=== PATIENT | female | born 1945 | race Caucasian/White ===

== ENCOUNTER 2021-07-04 04:24 | Emergency (ER) | payer OTHER ==
--- OUTSIDE RECORDS SUMMARY | 2021-07-04 04:28 | XMS REPORT | Continuity of Care Document ---
:1945 Author Organization [facility] t Address [address] [place] [address] Care Team Providers Name Role Phone Farutn Sosa MD Primary Care Physician Barry Baldwin MD Attending Clinician Mitzy Chilel MD Attending Clinician [phone] MD DENNY Attending Clinician Unavailable Carmelo Prather RN Attending Clinician Unavailable DENNY Admitting Clinician Unavailable MD DENNY Admitting Clinician Unavailable Payers Payer Name Policy Type Policy Effective Date Expiration Date Sour ce Number HUMANA [id number] 2020 [facility] MEDICAREHUMANA 00:00:00 Hospital MEDICARE PPO/PFFS/ERS [id number] 2020 -PresentPPO Problems Condition Condition Condition Status Onset Resolution Last Treating Co mments Source Name Details Category Date Date Treatment Clinician Date Atrial Atrial Disease Active Methodi flutter flutter 04-11 st 00:00: Hospita 00 l Allergies, Adverse Reactions, Alerts Allergy Allergy Status Severity Reaction(s) Onset Inactive Treating Comm ents Source Name Type Date Date Clinician No Known DA Active U [facility] Drug 05-16 Clear Allergie 00:00: Burk s 00 [facility] adhesive DA Active AL [facility] tape 05-16 Clear 00:00: Burk 00 [facility] No Known DA Active U [facility] Allergie 05-15 [place] 00[place] [facility] l Family History Family Member Diagnosis Comments Start Date Stop Date Source Natural brother Heart disease Method [facility] Natural father [facility] Natural mother COPD [facility] Natural sister Anemia [facility] Social History Social Habit Start Date Stop Date Quantity Comments Source Tobacco use and 2021-04-19 2021-04-19 Never used [facility] 00:00:00 00:00:00 Hospital Alcohol intake 2021-04-19 2021-04-19 Current [facility] 00:00:00 00:00:00 non-drinker of Hospital alcohol (finding) Sex Ass[birth year] [facility] 00:[facility] 00:[facility]:00 Hospital Smoking Status Start Date Stop Date Source Never smoker [facility] Medications Ordered Filled Start Stop Current Ordering Indication Dosage Frequency Signature Comments Components Source Medication Medication Date Date Medication? Clinician (SIG) Name Name enoxaparin 2020- No Q.5D Inject Meth juan sodium -11 04-[address] (LOVENOX 19:47: 00:00 skin 2 Hospit a SUBQ) 16 :00 (two) l times a day. Pt is not sure about dosage metoprolol Yes 50mg Q.5D Take 50 mg M ethodi tartrate 5-[address] (LOPRESSOR) 19:47: (two) Hospi ta 50 mg 14 times a l tablet day. losartan-hy Yes 1{tbl} QD Take 1 Me thodi drochloroth 5-[address] iazide 19:47: mouth Hospita (HYZAAR) 14 daily. l 50-12.5 mg per tablet apixaban Yes 5mg Q.5D Take 5 mg Meth juan (ELIQUIS) 5-[address] 2.5 mg 19:47: (two) Hospita tablet 14 times a l day. aspirin 81mg QD Take 81 mg Met hodi (ECOTRIN) 04-[address] 81 MG 12:16: 00:00 daily. Hospita enteric 49 :00 l coated tablet Vital Signs Vital Name Observation Time Observation Value Comments Source Systolic blood 2021-04-11 18:45:00 134 mm[Hg] [facility] pressure Diastolic blood 2021-04-11 18:45:00 71 mm[Hg] [facility] pressure Heart rate 2021-04-11 18:45:00 75 /min [facility] Respiratory rate 2021-04-11 18:45:00 14 /min [facility] [place] [place] Oxygen saturation in 2021-04-11 18:45:00 98 /min [facility] Arterial blood by Pulse oximetry Body temperature 2021-04-11 16:00:[address] [facility] [place] [place] Body height 2021-04-11 12:07:00 172.7 cm [facility] Body weight 2021-04-11 12:07:00 91.853 kg [facility] BMI 2021-04-11 12:07:00 30.79 kg/m2 [facility] Procedures Procedure Date / Time Performing Clinician Source Performed ECG 12-LEAD 2021-04-11 15:12:47 Barry Baldwin EP ABLATION FLUTTER 2021-04-11 14:34:18 [facility] AND SCREEN 2021-04-11 12:42:00 Barry Baldwin spital ECG PRE/POST OP 2021-04-11 11:18:34 Barry Baldwin spital COVID-19 QUALITATIVE 2021-04-09 17:35:00 [facility] PROTHROMBIN TIME WITH INR 2021-04-09 17:31:00 Barry Baldwin [facility] MAGNESIUM LEVEL 2021-04-09 17:31:00 Barry Baldwin spital HC COMPLETE BLD COUNT 2021-04-09 17:31:00 Barry Baldwin [facility] W/AUTO DIFF COMPREHENSIVE METABOLIC 2021-04-09 17:31:[address] [facility] [place] [place] PANEL ESTIMATED GFR 2021-04-09 17:31:00 DennyGypsyeulalia [facility] spital Plan of Care Planned Activity Planned Date Details Comments Source Future Scheduled Test COVID-19 VACCINE (1) [facility] [code = COVID-19 VACCINE (1)] Future Scheduled Test Hepatitis C screening [facility] (procedure) [code = 127325152] Future Scheduled Test BREAST CANCER SCREENING [facility] [code = BREAST CANCER SCREENING] Future Scheduled Test COLONOSCOPY SCREENING [facility] [code = COLONOSCOPY SCREENING] Future Scheduled Test SHINGLES VACCINES (#1) [facility] [code = SHINGLES VACCINES (#1)] Future Scheduled Test 65+ PNEUMOCOCCAL Me [facility] VACCINE (1 of 1 - PPSV23) [code = 65+ PNEUMOCOCCAL VACCINE (1 of 1 - PPSV23)] Future Scheduled Test INFLUENZA VACCINE [code [facility] = INFLUENZA VACCINE] Encounters Start End Encounter Admission Attending Care Care Encounter Source Date/Time Date/Time Type Type Clinicians Facility Department ID 2021-04-11 2021-04-11 Hospital Denny, 1.2.840.1 [id number] Methodi 05:38:00 14:46:00 Encounter Nadeulalia [address]13.1.[address] 3.430.2.7 Hospit a .3.689578 l .8 2021-04-11 2021-04-11 Surgery Denny, 1.2.840.1 [id number] Methodi 08:00:00 10:00:[address] 3.430.2.7 Hospit a .3.588823 l .8 2021-04-11 2021-04-11 Anesthesia Chilel, 1.2.840.1 [id number] Methodi 08:00:00 09:55:00 Event Mitzy 05894.1.[address] [place] 3.430.2.7 Hospi ta .3.671695 l .8 2021-04-11 2021-04-11 [facility] [id number] [place] 00:00:00 00:00:00 NADIM [address] 2021-04-11 2021-04-11 Travel 1.2.840.1 1.2.003.916 [id number] Methodi 00:00:00 00:00:[address] 3.430.2.7 0.2.7.3.698 Ho spita .3.740344 084.8 l .8 2021-04-09 2021-04-09 Lab Denny, 1.2.840.1 [id number] Methodi 11:49:08 12:04:[address] 3.430.2.7 Hospit a .3.051152 l .8 2021-04-09 2021-04-09 Travel 1.2.840.1 1.2.002.116 [id number] Methodi 00:00:00 00:00:[address] 3.430.2.7 0.2.7.3.698 Ho spita .3.758313 084.8 l .8 2021-04-09 2021-04-09 [facility] Denny, 1.2.840.1 [id number] Methodi 00:00:00 00:00:00 Orders Nadim [address]73.1.[address] 3.430.2.7 Hospit a .3.406122 l .8 2021-04-09 2021-04-09 Outpatient DENNY, [facility] [id number] [place] 00:00:00 00:00:00 NADIM [address] 2021-03-05 2021-03-05 Telephone Crescencio, 1.2.840.1 [id number] Methodi 00:00:00 00:00:[address] [place] 3.430.2.7 Hospit a .3.087041 l .8 2021-03-05 2021-03-05 Travel 1.2.840.1 1.2.212.819 [id number] Methodi 00:00:00 00:00:[address] 3.430.2.7 0.2.7.3.698 enriqueta .3.084345 084.8 l .8 Results Test Description Test Test Results Result Source Time Comments Comments Electrophysiology 2021-04- TITLE OF [facility] st procedure 01 PROCEDURE:[facility] 16:47:05 flutter ablation.PREOPERATIVE DIAGNOSIS:Atrial flutter.POSTOPERATIVE DIAGNOSIS:CTI-dependen t atrial flutter.PROCEDURES PERFORMED:1. Monitored anesthesia care.2. Intracardiac 3-dimensional mapping.3. Coronary sinus catheter placement.4. Right radiofrequency ablation.5. Post-ablation EP study.BRIEF HISTORY AND CLINICAL BACKGROUND:This is a 75-year-old woman who was found to have atrial flutter by herinternist. He started her on oral anticoagulation. She was referred to Minerva, client relations associate in [facility] but Mrs. Prasad declinied to go thereand instead was referred to me for consideration of treatment options for atrialflutter.We discussed the various options including cardioversion and observation,cardiovers ion and medical management or ablation and she elected to proceed forradiofrequency ablation. Today, she comes for that procedure.DESCRIPTION OF PROCEDURE:The patient was taken to the EP lab in the fasting nonsedated drug free state. Informed consent had been previously obtained and reconfirmed. She was preppedand draped in the usual fashion. Utilizing ultrasound guidance, access to theright femoral vein was achieved x2. A 7-Liberian and 8-Liberian short sheaths wereplaced through the 7-Liberian sheath, a Decapolar pacing and recording catheterwas advanced into the coronary sinus for measurement of left atrial electrogramsand pacing from the os of the coronary sinus. Utilizing this catheter,entrainment mapping from the os of the coronary sinus was performed and thepost-pacing interval minus tachycardia cycle length was measured. The 8-Liberian sheath was upgraded to a medium curve Agilis sheath through which aSt. César Medical flexibility irrigated tip ablation catheter was advanced. Thiswas then used to three dimensionally map the ventricular to the caval aspect ofthe CTI. Subsequently, radiofrequency ablation drag lesions across the CTIguided by diminishment of electrogram size to less than 0.3 millivolts wasperformed. Utilizing this technique, radiofrequency ablation drag lesionsdiminished electrogram size to less than 0.1 millivolt across the CTIterminating the atrial flutter. There was a thick ridge of tissue on the cavalaspect of the CTI, which required additional lesion sets to decrease theelectrogram size to less than 0.1 millivolts. Having done so and testing forconduction block, we eventually achieved transannular conduction time that wassubstantially increased compared to preablation TACT. At this point, thepost-ablation EP study was completed and the Agilis sheath was upsized to ashort 9-Liberian sheath and the patient was taken to recovery for removal of thevenous sheaths and further recovery from monitored anesthesia care.COMPLICATIONS:Non e.FINDINGS:1. Estimated blood loss 4 mL.2. The baseline rhythm was atrial flutter with an atrial flutter cycle lengthof 258 milliseconds.3. Entrainment from the [employer] MANAGER showed a post-pacing interval minus tachycardiacycle length of 0 msec.4. Radiofrequency ablation drag lesions across the CTI terminated atrialflutter.5. Preablation transannular conduction time was 60 milliseconds andpost-ablation was 160 milliseconds.6. AV node block cycle length 400 milliseconds.7. AV node ERP drive cycle of 500 milliseconds was 250 milliseconds.CONCLUSIO N:1. Successful acute ablation of atrial flutter.2. Normal AV node function.RECOMMENDATIO NS:Resume oral anticoagulation later today and discharge home in 4 hours. ECG 12 lead 2021-04-11 23:33:39 Test Item Value Reference Range Interpretation Comme nts Ventricular rate (test code = 253) Atrial rate (test code = 255) KS interval (test code = 266) QRSD interval (test code = 260) QT interval (test code = 264) QTC interval (test code = 265) P axis 1 (test code = 267) QRS axis 1 (test code = 268) T wave axis (test code = 270) EKG impression (test code = 273) [facility] [id number] 23:27:17 Test Item Value Reference Range Interpretation Comments Ventricular rate (test code = 253) Atrial rate (test code = 255) QRSD interval (test code = 260) QT interval (test code = 264) QTC interval (test code = 265) QRS axis 1 (test code = 268) T wave axis (test code = 270) EKG impression (test code = 273) [facility] and [id number] 14:00:00 Test Item Value Reference Range Interpretation Comments ABO grouping (test code = 883-9) O Rh type (test code = 94052-1) POS Antibody screen (gel) (test code = NEG 890-4) [facility] qualitative [id number] 01:21:49 Test Item Value Reference Range Interpretation Comments Interpretation (test code = 7976814) COVID-19 qualitative RT-PCR Not-Detected Not-Detected result (test code = 48560-8) COVID-19 qualitative RT-PCR See link below for (test code = 7070) PDF Lab Report [facility] [id number]-GvU-3 (COVID-19) RNA [Presence] in Respiratory specimen by LU with probe [id number] 20:21:39 Test Item Value Reference Range Interpretation Comments SARS-CoV-2 (COVID-19) RNA Not detected Not-Detected [Presence] in Respiratory specimen by LU with probe detection (test code = 83475-7) Whether patient is employed in a healthcare setting (test code = 34783-2) Whether the patient has symptoms related to condition of interest (test code = 83644-9) Patient was hospitalized because of this condition (test code = 82397-8) Whether the patient was admitted to intensive care unit (ICU) for condition of interest (test code = 97099-2) Whether patient resides in a congregate care setting (test code = 39601-8) BASIC METABOLIC [id number] 06:28:00 Test Item Value Reference Range Interpretation Comments SODIUM (test code = 142 mmol/L 136-145 N NA) POTASSIUM (test code = 4.8 mmol/L 3.5-5.1 N K) CHLORIDE (test code = 105.0 mmol/L 98-107 N CL) CARBON DIOXIDE (test 26.4 mmol/L 21-32 N code = CO2) GLUCOSE (test code = 135 mg/dL 70-110 H GLU) BLOOD UREA NITROGEN 22 mg/dL 7-18 H (test code = BUN) GLOMERULAR FILTRATION 50.8 >60 Unit o f measure: RATE (test code = GFR) mL/mi n/1.73 [id number] Range:Healthy Adults >90 mL/min/1.73 m2 For Chronic Kidney Disease: St age II Mild Decrease in GFR 60-90 St age III Moderate Decrease in GFR 30-59 Stage IV Severe Decre ase in GFR 15- 29 Stage V Kidney Failure <15 CREATININE (test code 1.06 mg/dL 0.55-1.30 N = CREAT) CALCIUM (test code = 8.1 mg/dL 8.2-10.1 L CA) HGB [id number] 05:55:00 Test Item Value Reference Range Interpretation Comments HEMOGLOBIN (test code = HGB) 10.7 g/dL 12-16 L HEMATOCRIT (test code = HCT) 33.2 % 37-47 L Novel Coronavirus 2019 [id number] 14:35:00 Test Item Value Reference Range Interpretation Comments Novel Coronavirus 2018 Inhouse (test Negative Negative code = COVNONPUI) Novel Coronavirus 2019 [id number] 14:35:00 Test Item Value Reference Range Interpretation Comments Novel Coronavirus 2018 Inhouse (test Negative Negative code = COVNONPUI) - USG NDL PLACEMENT (Bxg/Asp)2020-06-07 09:49:00 Patient Name: RAMIREZ PRASAD Unit No: [id number] EXAMS: CPT CODE: [id number] USG NDL PLACEMENT (Bxg/Asp) 83893 INDICATION: Left knee pain. PROCEDURE: Ultrasound guided cryoneurolysis of the anterior femoral cutaneous nerve superior and inferior branches of the infrapatellar nerve. MANAGER BOOKS: Dr. Luo. MEDICATIONS: 1 % Lidocaine localanesthesia CONTRAST: None. COMPLICATION: None immediately evident. DESCRIPTION: After the procedure, including indication and potential complications had been discussed with the patient and questions answered, written informed consent was obtained. The patient was then taken to the ultrasound suite and placed on the table in supine position where skin of the left knee was evaluated sonographically. The skin was marked using ultrasound guidance. The skin was then prepped and draped sterilely. A time out was performed. After achieving 1% Lidocaine local anesthesia, the Iovera device, composed ofthree hollow closed-tip 27 gauge 6 mm needles, was introduced percutaneously at the target site as marked sonographically. At each target site, the Iovera device was activated over a 60 second cycle, creating a cold zone at the target site. Following each cycle, the probe was removed and advanced to the next target site. No immediate complication were observed. The patient tolerated the procedure well and was subsequently discharged in stable condition. Preprocedural pain level: 3/ 10 Postprocedural pain level: / 10 IMPRESSION: Cryoneurolysis of the anterior femoral cutaneous nerve superior and inferior branches of the infrapatellar nerve as above. at 0949 Reported and signed by: Gigi Luo MD CC: Anjel Spence MD Technologist: JOVON HAYS RDMS, RVT Transcribed D/ (0901) Lav[facility]G [facility] NAME: RAMIREZ PRASAD [address] [facility] PHYS: Anjel Self MD : 1945 AGE: 74 SEX: F [place] [address] LOC: Y.RAD PHONE #: [phone] EXAM DATE: 06/07/2020 STATUS: REG CLI FAX #: [phone] RAD #: D/C DT PAGE 1 Signed Report Patient Name: RAMIREZ PRASAD Unit No: [id number] EXAMS: CPT CODE: [id number] USG NDL PLACEMENT (Bxg/Asp) 40456 <Continued> Orig Print D/T: S: 06/07/2020 (0952) [facility] NAME: RAMIREZ PRASAD [address] [facility] PHYS: Anjel Self MD : 1945 AGE: 74 SEX: F [place] [address] LOC: Y.RAD PHONE #: [phone] EXAM DATE: 06/07/2020 STATUS: REG CLI FAX #: [phone] RAD #: D/C DT PAGE 2 Signed ReportCBC W/AUTO DIFF 2020-05-16 12:07:00 Test Item Value Reference Range Interpretation Comments WHITE BLOOD CELL (test code = WBC) 5.5 K/mm3 5.8-11.0 L RED BLOOD CELL (test code = RBC) 4.21 M/mm3 4.2-5.4 N HEMOGLOBIN (test code = HGB) 12.6 g/dL 12-16 N HEMATOCRIT (test code = HCT) 38.0 % 37-47 N MEAN CELL VOLUME (test code = MCV) 90 fL 80-98 N MEAN CELL HGB (test code = MCH) 29.9 pg 27-34 N MEAN CELL HGB CONCENTRATION (test 33.2 g/dL 30.8-34.1 N code = MCHC) RED CELL DISTRIBUTION WIDTH (test 12.6 % 11-16 N code = RDW) PLT (test code = PLT) 285 K/mm3 130-400 N MEAN PLATELET VOLUME (test code = 10.9 fL 8.9-12.1 N MPV) NEUTROPHIL % (test code = NT%) 61.4 % 45-70 N LYMPHOCYTE % (test code = LY%) 25.7 % 20-40 N MONOCYTE % (test code = MO%) 9.4 % 3-10 N EOSINOPHIL % (test code = EO%) 2.6 % 1-5 N BASOPHIL % (test code = BA%) 0.7 % 0.0-1.1 N NEUTROPHIL # (test code = NT#) 3.35 K/mm3 2.00-7.50 N LYMPHOCYTE # (test code = LY#) 1.40 K/mm3 1.50-4.00 L MONOCYTE # (test code = MO#) 0.51 K/mm3 0.2-0.8 N EOSINOPHIL # (test code = EO#) 0.14 K/mm3 0.04-0.4 N BASOPHIL # (test code = BA#) 0.04 K/mm3 0.02-0.10 N MANUAL DIFF REQUIRED (test code = NO MANUAL DIFF MDIFF) NUCLEATED RED BLOOD CELL (test 0 % 0-0 N code = NRBC) COMPREHENSIVE METABOLIC [id number] 11:59:00 Test Item Value Reference Range Interpretation Comments SODIUM (test code = 141 mmol/L 136-145 N NA) POTASSIUM (test code = 4.5 mmol/L 3.5-5.1 N K) CHLORIDE (test code = 103.0 mmol/L 98-107 N CL) CARBON DIOXIDE (test 27.5 mmol/L 21-32 N code = CO2) GLUCOSE (test code = 82 mg/dL 70-110 N GLU) BLOOD UREA NITROGEN 25 mg/dL 7-18 H (test code = BUN) GLOMERULAR FILTRATION 55.6 >60 Unit o f measure: RATE (test code = GFR) mL/mi n/1.73 [id number] Range:Healthy Adults >90 mL/min/1.73 m2 For Chronic Kidney Disease: St age II Mild Decrease in GFR 60-90 St age III Moderate Decrease in GFR 30-59 Stage IV Severe Decre ase in GFR 15- 29 Stage V Kidney Failure <15 CREATININE (test code 0.98 mg/dL 0.55-1.30 N = CREAT) TOTAL PROTEIN (test 7.1 g/dL 6.4-8.2 N code = PROT) ALBUMIN (test code = 3.6 g/dL 3.4-5.0 N ALB) GLOBULIN (test code = 3.5 g/dL 2.2-4.2 N GLOB) ALBUMIN/GLOBULIN RATIO 1.0 0.7-2.0 N (test code = A/G) CALCIUM (test code = 9.0 mg/dL 8.2-10.1 N CA) BILIRUBIN TOTAL (test 0.50 mg/dL 0.2-1.00 N code = BILT) SGOT/AST (test code = 20.0 U/L 15-37 N AST) SGPT/ALT (test code = 20.0 U/L 12-78 N Please note new ALT) normal range. ALKALINE PHOSPHATASE 65 U/L 46-116 N TOTAL (test code = ALKP) PROTHROMBIN [id number] 11:59:00 Test Item Value Reference Range Interpretation Comments PROTHROMBIN TIME 15.2 secs 10.1-12.5 H PATIENT (test code = PTP) INTERNATIONAL NORMAL 1.36 <2.0 RECOMME NDED THERAPEUTIC RATIO (test code = RANGE FOR ORAL INR) ANTICOAGULANTTR EATMENT: CONDI TION INRProphylaxis of venous thrombos is in 2.0 - 3.0 high-risk medic al or surgical patientsTreatme nt of venous thrombos is 2.0 - 3.0Prevention o f embolism 2.0 - 3.0Prevention o f recurrent embol ism, or 3.0 - 4. 5 patients with mechanical pros thetic intravascular v chamorro IS PATIENT ON ANTICOAGULANTS ? YLIST ANTICOAGULANT/ANTI PLT MEDICATION : OtherHas Lab been notified if Patient is on Heparin Drip? NOIf Yes, order CBC, OCCULT BLOOD, PT every other day NTHROMBOPLASTIN TIME [id number] 11:59:00 Test Item Value Reference Range Interpretation Comments PTT ACTIVATED (test code = APTT) 35.5 secs 24.9-37.0 N IS PATIENT ON ANTICOAGULANTS ? YLIST ANTICOAGULANT/ANTI PLT MEDICATION : OtherHas Lab been notified if Patient is on Heparin Drip? NOIf Yes, order CBC, OCCULT BLOOD, PT every other day NBASIC METABOLIC [id number] 11:46:00 Test Item Value Reference Range Interpretation Comments SODIUM (test code = NA) 139 mmol/L 134-147 N POTASSIUM (test code = K) 4.4 mmol/L 3.4-5.0 N CHLORIDE (test code = CL) 108 mmol/L 100-108 N CARBON DIOXIDE (test code = CO2) 24 mmol/L 21-32 N ANION GAP (test code = GAP) 7.0 GAP calc 4.0-15.0 N GLUCOSE (test code = GLU) 98 MG/DL 70-110 N BLOOD UREA NITROGEN (test code = 17 MG/DL 7-18 N BUN) GLOMERULAR FILTRATION RATE (test 58 estGFR >60 L code = GFR) CREATININE (test code = CREAT) 1.0 MG/DL 0.6-1.0 N CALCIUM (test code = CA) 8.8 MG/DL 8.5-10.1 N PROTHROMBIN [id number] 11:37:00 Test Item Value Reference Range Interpretation Comments PT PATIENT (test code = PTP) 16.8 SECONDS 9.3-12.9 H INTERNATIONAL NORMAL RATIO 1.45 INR Unit 0.8-1.2 H (test code = INR) CBC W/AUTO [id number] 11:33:00 Test Item Value Reference Range Interpretation Comments WHITE BLOOD CELL (test code = 4.8 K/mm3 3.5-11.0 N WBC) RED BLOOD CELL (test code = RBC) 4.20 M/mm3 4.70-6.10 L HEMOGLOBIN (test code = HGB) 12.8 G/DL 10.4-14.9 N HEMATOCRIT (test code = HCT) 39.1 % 31.5-44.1 N MEAN CELL VOLUME (test code = 93.1 Fl 84.5-98.6 N MCV) MEAN CELL HGB (test code = MCH) 30.5 pg 27.0-34.2 N MEAN CELL HGB CONCETRATION (test 32.7 G/DL 31.5-34.0 N code = MCHC) RED CELL DISTRIBUTION WIDTH (test 13.6 SD 11.5-14.5 N code = RDW) PLATELET COUNT (test code = PLT) 283.0 K/mm3 150-450 N MEAN PLATELET VOLUME (test code = 10.50 fL 7.0-10.5 N MPV) NEUTROPHIL % (test code = NT%) 61.2 % 40-76 N LYMPHOCYTE % (test code = LY%) 26.7 % 20.5-51.1 N MONOCYTE % (test code = MO%) 8.6 % 1.7-9.3 N EOSINOPHIL % (test code = EO%) 2.9 % 0.0-6.0 N BASOPHIL % (test code = BA%) 0.6 % 0.0-2.0 N NEUTROPHIL # (test code = NT#) 2.90 K/mm3 1.8-7.6 N LYMPHOCYTE # (test code = LY#) 1.3 K/mm3 0.6-3.2 N MONOCYTE # (test code = MO#) 0.4 K/mm3 0.3-1.1 N EOSINOPHIL # (test code = EO#) 0.1 K/mm3 0.0-0.4 N BASOPHIL # (test code = BA#) 0.0 K/mm3 0.0-0.1 N MANUAL DIFF REQUIRED (test code = NO DIFF/SCN CRITERIA MDIFF) BASIC METABOLIC [id number] 04:25:00 Test Item Value Reference Range Interpretation Comments SODIUM (test code = NA) 142 mmol/L 134-147 N POTASSIUM (test code = 3.9 mmol/L 3.4-5.0 N K) CHLORIDE (test code = 109 mmol/L 100-108 H CL) CARBON DIOXIDE (test 26 mmol/L 21-32 N code = CO2) ANION GAP (test code = 7.0 GAP calc 4.0-15.0 N GAP) GLUCOSE (test code = 90 MG/DL 70-110 N GLU) BLOOD UREA NITROGEN 14 MG/DL 7-18 N (test code = BUN) GLOMERULAR FILTRATION >=60 max estimate >60 RATE (test code = GFR) estGFR CREATININE (test code = 0.9 MG/DL 0.6-1.0 N CREAT) CALCIUM (test code = CA) 8.3 MG/DL 8.5-10.1 L [id number] 04:25:00 Test Item Value Reference Range Interpretation Comments MAGNESIUM (test code = MAG) 2.1 MG/DL 1.8-2.4 N BASIC METABOLIC [id number] 06:53:00 Test Item Value Reference Range Interpretation Comments SODIUM (test code = NA) 139 mmol/L 134-147 N POTASSIUM (test code = K) 3.7 mmol/L 3.4-5.0 N CHLORIDE (test code = CL) 108 mmol/L 100-108 N CARBON DIOXIDE (test code = CO2) 25 mmol/L 21-32 N ANION GAP (test code = GAP) 6.0 GAP calc 4.0-15.0 N GLUCOSE (test code = GLU) 81 MG/DL 70-110 N BLOOD UREA NITROGEN (test code = 15 MG/DL 7-18 N BUN) GLOMERULAR FILTRATION RATE (test 58 estGFR >60 L code = GFR) CREATININE (test code = CREAT) 1.0 MG/DL 0.6-1.0 N CALCIUM (test code = CA) 8.5 MG/DL 8.5-10.1 N LIPID PROFILE (CORONARY RISK)2019-05-16 06:53:00 Test Item Value Reference Range Interpretation Comments TRIGLYCERIDES (test code = TRIG) 161 MG/DL 0-150 H CHOLESTEROL (test code = CHOL) 232 MG/DL 133-200 H CHOLESTEROL/HDL RATIO (test code = 4.22 RATIO >0 CHOLHDL) HDL CHOLESTEROL (test code = HDL) 55 MG/DL 40-59 N NON-HDL CHOLESTEROL (test code = 177 mg/dL <130 H NHDL) LIPOPROTEIN LDL (test code = LDL) 153 MG/DL 0-129 H LDL/HDL (test code = LDL/HDL) 2.78 Ratio 1.48-3.22 Avg N [id number] 06:53:00 Test Item Value Reference Range Interpretation Comments MAGNESIUM (test code = MAG) 2.2 MG/DL 1.8-2.4 N GLYCOSYLATED HEMOGLOBIN [id number] 06:53:00 Test Item Value Reference Range Interpretation Comments GLYCOSYLATED HEMOGLOBIN (HA1C) 5.6 % A1C 4.2-6.3 N (test code = GLYHGB) ESTIMATED AVERAGE GLUCOSE (test 114 MG/DLest code = EAG) PROTHROMBIN [id number] 06:53:00 Test Item Value Reference Range Interpretation Comments PT PATIENT (test code = PTP) 12.0 SECONDS 9.3-12.9 N INTERNATIONAL NORMAL RATIO 1.04 INR Unit 0.8-1.2 N (test code = INR) CBC W/AUTO [id number] 06:43:00 Test Item Value Reference Range Interpretation Comments WHITE BLOOD CELL (test code = 4.9 K/mm3 3.5-11.0 N WBC) RED BLOOD CELL (test code = RBC) 3.93 M/mm3 4.70-6.10 L HEMOGLOBIN (test code = HGB) 11.6 G/DL 10.4-14.9 N HEMATOCRIT (test code = HCT) 36.4 % 31.5-44.1 N MEAN CELL VOLUME (test code = 92.6 Fl 84.5-98.6 N MCV) MEAN CELL HGB (test code = MCH) 29.5 pg 27.0-34.2 N MEAN CELL HGB CONCETRATION (test 31.9 G/DL 31.5-34.0 N code = MCHC) RED CELL DISTRIBUTION WIDTH (test 13.7 SD 11.5-14.5 N code = RDW) PLATELET COUNT (test code = PLT) 242.0 K/mm3 150-450 N MEAN PLATELET VOLUME (test code = 10.30 fL 7.0-10.5 N MPV) NEUTROPHIL % (test code = NT%) 47.8 % 40-76 LYMPHOCYTE % (test code = LY%) 42.1 % 20.5-51.1 N MONOCYTE % (test code = MO%) 7.8 % 1.7-9.3 N EOSINOPHIL % (test code = EO%) 1.9 % 0.0-6.0 N BASOPHIL % (test code = BA%) 0.4 % 0.0-2.0 N NEUTROPHIL # (test code = NT#) 2.32 K/mm3 1.8-7.6 N LYMPHOCYTE # (test code = LY#) 2.0 K/mm3 0.6-3.2 N MONOCYTE # (test code = MO#) 0.4 K/mm3 0.3-1.1 N EOSINOPHIL # (test code = EO#) 0.1 K/mm3 0.0-0.4 N BASOPHIL # (test code = BA#) 0.0 K/mm3 0.0-0.1 N MANUAL DIFF REQUIRED (test code = NO DIFF/SCN CRITERIA MDIFF) PROCALCITONIN (PCT)2019-05-16 03:10:00 Test Item Value Reference Range Interpretation Comments PROCALCITONIN (PCT) < 0.05 ng/mL 0.00-0.05 N PROCALCI TONIN (PCT) (test code = PROCAL) NORMAL RANGE (ADULT): <0.05 NG/ML. * a concentration < 0.5 ng/mL represent s a low risk of severe sepsis and/or septic s hock.* a concentration >2 ng/mL represent s a high risk of se amanda sepsis and/or s eptic shock.Neverthel ess, concentrations <0.5 ng/mL do not ex clude aninfection, on account of loca lized infections (withoutsystemi c signs) which ca n be associated with such lowconcentratio ns, or a systemic infe ction in its initials tages (< 6 hours). Furthermore, in creased procalcitoninca n occur without infecti on. PCT concentrations between 0.5and 2.0 ng/m L should be inter preted taking into acc ount thepatient's hi story. It is recommend ed to retest PCT with in6-24 hours if any concentrations <2 ng/mL are obtai carlos. PROCALCITONIN (PCT)2019-05-16 03:10:00 Test Item Value Reference Range Interpretation Comments PROCALCITONIN (PCT) < 0.05 ng/mL 0.00-0.05 PROCALCI TONIN (PCT) (test code = PROCAL) NORMAL RANGE (ADULT): <0.05 NG/ML. * a concentration < 0.5 ng/mL represent s a low risk of severe sepsis and/or septic s hock.* a concentration >2 ng/mL represent s a high risk of se amanda sepsis and/or s eptic shock.Neverthel ess, concentrations <0.5 ng/mL do not ex clude aninfection, on account of loca lized infections (withoutsystemi c signs) which ca n be associated with such lowconcentratio ns, or a systemic infe ction in its initials tages (< 6 hours). Furthermore, in creased procalcitoninca n occur without infecti on. PCT concentrations between 0.5and 2.0 ng/m L should be inter preted taking into acc ount thepatient's hi story. It is recommend ed to retest PCT with in6-24 hours if any concentrations <2 ng/mL are obtai carlos. [id number] 20:54:00 Test Item Value Reference Range Interpretation Comments TROPONIN-I (test 0.017 NG/ML 0.000-0.045 N Negative: < /= 0.045 code = TROPI) Positive: >/= 0.046 Correlation wit h serial results, other cardiac markers, and cl inical findings is nec essary to determine the c linical significance of this result. Quantit ative results using d ifferent methodologies s hould not be compared to one another as nume rical results may diego yby method. Completed by Nursing: NOT4 [id number] 16:58:00 Test Item Value Reference Range Interpretation Comments T4 FREE (test code = T4F) 1.01 NG/DL 0.89-1.76 N THYROID STIMULATING [id number] 16:58:00 Test Item Value Reference Range Interpretation Comments THYROID STIMULATING HORMONE 1.880 mcIU/ML 0.340-4.820 N (test code = TSH) [id number] 16:50:00 Test Item Value Reference Range Interpretation Comments TROPONIN-I (test < 0.015 NG/ML 0.000-0.045 N Negative: </= 0.045 code = TROPI) Positive: >/= 0.046 Correlation wit h serial results, other cardiac markers, and cl inical findings is nec essary to determine the c linical significance of this result. Quantit ative results using d ifferent methodologies s hould not be compared to one another as nume rical results may diego yby method. Completed by Nursing: NOLACTIC ACID [id number] 14:35:00 Test Item Value Reference Range Interpretation Comments LACTIC ACID POC (test code = 1.24 MMOL/L 0.90-1.70 N LACTP) COMPREHENSIVE METABOLIC [id number] 13:10:00 Test Item Value Reference Range Interpretation Comments SODIUM (test code = NA) 139 mmol/L 134-147 N POTASSIUM (test code = 3.7 mmol/L 3.4-5.0 N K) CHLORIDE (test code = 105 mmol/L 100-108 N CL) CARBON DIOXIDE (test 27 mmol/L 21-32 N code = CO2) ANION GAP (test code = 7.0 GAP calc 4.0-15.0 N GAP) GLUCOSE (test code = 104 MG/DL 70-110 N GLU) BLOOD UREA NITROGEN 15 MG/DL 7-18 N (test code = BUN) GLOMERULAR FILTRATION >=60 max estimate >60 RATE (test code = GFR) estGFR CREATININE (test code = 0.9 MG/DL 0.6-1.0 N CREAT) TOTAL PROTEIN (test code 7.0 G/DL 6.4-8.2 N = PROT) ALBUMIN (test code = 3.4 G/DL 3.4-5.0 N ALB) GLOBULIN (test code = 3.6 GM/dL GLOB) ALBUMIN/GLOBULIN RATIO 0.9 RATIO 1.2-2.2 L (test code = A/G) CALCIUM (test code = CA) 8.6 MG/DL 8.5-10.1 N BILIRUBIN TOTAL (test 0.40 MG/DL 0.2-1.2 N code = BILT) SGOT/AST (test code = 17 Unit/L 15-37 N AST) SGPT/ALT (test code = 20 Unit/L 12-78 N ALT) ALKALINE PHOSPHATASE 59 Unit/L 45-117 N TOTAL (test code = ALKP) Completed by Nursing: [id number] 13:10:00 Test Item Value Reference Range Interpretation Comments MAGNESIUM (test code = MAG) 2.1 MG/DL 1.8-2.4 N Completed by Nursing: NONT PRO-BRAIN NATRIURETIC [id number] 13:10:00 Test Item Value Reference Range Interpretation Comments NT PRO-BRAIN NATRIURETIC PEPTI 2041 PG/ML 0-100 H (test code = PROBNP) Completed by Nursing: [id number] 13:10:00 Test Item Value Reference Range Interpretation Comments TROPONIN-I (test < 0.015 NG/ML 0.000-0.045 N Negative: </= 0.045 code = TROPI) Positive: >/= 0.046 Correlation wit h serial results, other cardiac markers, and cl inical findings is nec essary to determine the c linical significance of this result. Quantit ative results using d ifferent methodologies s hould not be compared to one another as nume rical results may diego yby method. Completed by Nursing: NOCOMPREHENSIVE METABOLIC [id number] 13:03:00 Test Item Value Reference Range Interpretation Comments SODIUM (test code = NA) 139 mmol/L 134-147 N POTASSIUM (test code = K) 3.7 mmol/L 3.4-5.0 N CHLORIDE (test code = CL) 105 mmol/L 100-108 N CARBON DIOXIDE (test code = CO2) 27 mmol/L 21-32 N ANION GAP (test code = GAP) 7.0 GAP calc 4.0-15.0 N GLUCOSE (test code = GLU) 104 MG/DL 70-110 N BLOOD UREA NITROGEN (test code = 15 MG/DL 7-18 N BUN) GLOMERULAR FILTRATION RATE (test estGFR >60 code = GFR) CREATININE (test code = CREAT) MG/DL 0.6-1.0 TOTAL PROTEIN (test code = PROT) G/DL 6.4-8.2 ALBUMIN (test code = ALB) G/DL 3.4-5.0 GLOBULIN (test code = GLOB) GM/dL ALBUMIN/GLOBULIN RATIO (test RATIO 1.2-2.2 code = A/G) CALCIUM (test code = CA) 8.6 MG/DL 8.5-10.1 N BILIRUBIN TOTAL (test code = MG/DL 0.2-1.2 BILT) SGOT/AST (test code = AST) Unit/L 15-37 SGPT/ALT (test code = ALT) Unit/L 12-78 ALKALINE PHOSPHATASE TOTAL (test Unit/L 45-117 code = ALKP) Completed by Nursing: [id number] 13:03:00 Test Item Value Reference Range Interpretation Comments MAGNESIUM (test code = MAG) 2.1 MG/DL 1.8-2.4 N Completed by Nursing: NONT PRO-BRAIN NATRIURETIC [id number] 13:03:00 Test Item Value Reference Range Interpretation Comments NT PRO-BRAIN NATRIURETIC PEPTI (test PG/ML 0-100 code = PROBNP) Completed by Nursing: [id number] 13:03:00 Test Item Value Reference Range Interpretation Comments TROPONIN-I (test code = TROPI) NG/ML 0.000-0.045 Completed by Nursing: NOCBC W/AUTO [id number] 12:53:00 Test Item Value Reference Range Interpretation Comments WHITE BLOOD CELL (test code = 6.8 K/mm3 3.5-11.0 N WBC) RED BLOOD CELL (test code = RBC) 4.20 M/mm3 4.70-6.10 L HEMOGLOBIN (test code = HGB) 12.9 G/DL 10.4-14.9 N HEMATOCRIT (test code = HCT) 37.6 % 31.5-44.1 N MEAN CELL VOLUME (test code = 89.5 Fl 84.5-98.6 N MCV) MEAN CELL HGB (test code = MCH) 30.7 pg 27.0-34.2 N MEAN CELL HGB CONCETRATION (test 34.3 G/DL 31.5-34.0 H code = MCHC) RED CELL DISTRIBUTION WIDTH (test 13.3 SD 11.5-14.5 N code = RDW) PLATELET COUNT (test code = PLT) 271.0 K/mm3 150-450 N MEAN PLATELET VOLUME (test code = 10.30 fL 7.0-10.5 N MPV) NEUTROPHIL % (test code = NT%) 78.4 % 40-76 H LYMPHOCYTE % (test code = LY%) 13.2 % 20.5-51.1 L MONOCYTE % (test code = MO%) 7.6 % 1.7-9.3 N EOSINOPHIL % (test code = EO%) 0.4 % 0.0-6.0 N BASOPHIL % (test code = BA%) 0.4 % 0.0-2.0 N NEUTROPHIL # (test code = NT#) 5.32 K/mm3 1.8-7.6 N LYMPHOCYTE # (test code = LY#) 0.9 K/mm3 0.6-3.2 N MONOCYTE # (test code = MO#) 0.5 K/mm3 0.3-1.1 N EOSINOPHIL # (test code = EO#) 0.0 K/mm3 0.0-0.4 N BASOPHIL # (test code = BA#) 0.0 K/mm3 0.0-0.1 N MANUAL DIFF REQUIRED (test code = NO DIFF/SCN CRITERIA MDIFF) LACTIC ACID [id number] 12:52:00 Test Item Value Reference Range Interpretation Comments LACTIC ACID POC (test code = 2.62 MMOL/L 0.90-1.70 H LACTP) - XR CHEST 1 [id number] 12:41:00 Name: RAMIREZ PRASAD Bartow : 1945 Age/S: 73 / F [address] [address] Unit #: [id number] Loc: [place] [address] Phys: Tsering Javier MD Acct: [id number] Dis Date: Status: PRE ER PHONE #: [phone] Exam Date: 05/15/2019 1227 FAX #: Reason: AFlutterwith RVR EXAMS: CPT: [id number] XR CHEST 1 V [id number] Fluoro Time: DAP (Gy m2): Air Kerma (mGy): Chest Radiograph History: AFlutter with RVR Comparison: None at this time Location: R16 A single frontal view of the chest is submitted. The exam is limited due to a large amount of overlying soft tissue. The heart is within normal limits in size. Pulmonary vasculature isunremarkable. The visualized lung lorenzo appear to be free of disease. The bones appear unremarkable. IMPRESSION: There is no radiographic evidence of acute cardiopulmonary disease. at 1241 Reported and signed by: Jama Garibay M.D. CC: Tsering Javier MD PAGE 1 Signed Report Name: RAMIREZ PRASAD Bartow : 1945 Age/S: 73 / F [address] [address] Unit #: [id number] Loc: [place] [address] Phys: Tsering Javier MD Acct: [id number] Dis Date: Status: PRE ER PHONE #: [phone] Exam Date: 05/15/2019 1225 FAX #: Reason: AFlutter with RVR EXAMS: CPT: [id number] XR CHEST 1 V [id number] Fluoro Time: DAP (Gy m2): Air Kerma (mGy):<Continued> Technologist: Cynthia Meraz, RT(R)(MR) Trnscb Date/Time: 05/15/2019 (4069) LavonnePMT Orig Print D/T: S: 05/15/2019 (2790) PAGE 2 Signed Report TROPONIN I [id number] 12:26:00 Test Item Value Reference Range Interpretation Comments TROPONIN I RAPID 0.01 ng/mL 0.00-0.08 N - The use o f serial (test code = sampling and te sting TROPIRAP) protocol is a recommended pra ctice- An elevated tro ponin level alone is often not sufficient for diagnosis of my ocardial infarction. CHEMISTRY 8 [id number] 12:19:00 Test Item Value Reference Range Interpretation Comments ISTAT-SODIUM (test code = NAP) mmol/L 135-146 ISTAT-POTASSIUM (test code = KP) mmol/L 3.5-4.9 ISTAT-CHLORIDE (test code = CLP) mmol/L 98-109 ISTAT-CARBON DIOXIDE (test code = mmol/L 24-29 N ISTAT-CO2) ISTAT CALCIUM IONIZED (test code = mmol/L 1.12-1.32 ISTAT-HENOK) ISTAT-GLUCOSE (test code = GLUP) mg/dL 70-105 H ISTAT-BUN (test code = BUNP) mg/dL 8-26 N BEDSIDE CREATININE (test code = mg/dL 0.6-1.3 N CREATBED) GLOMERULAR FILTRATION RATE POC (test 65 39-90 N code = GFRBED) CHEMISTRY 8 [id number] 12:19:00 Test Item Value Reference Range Interpretation Comments ISTAT-SODIUM (test code = NAP) 139 mmol/L 135-146 N ISTAT-POTASSIUM (test code = KP) 4.0 mmol/L 3.5-4.9 N ISTAT-CHLORIDE (test code = CLP) 100 mmol/L 98-109 N ISTAT-CARBON DIOXIDE (test code = 26 mmol/L 24-29 N ISTAT-CO2) ISTAT CALCIUM IONIZED (test code 1.26 mmol/L 1.12-1.32 N = ISTAT-HENOK) ISTAT-GLUCOSE (test code = GLUP) 119 mg/dL 70-105 H ISTAT-BUN (test code = BUNP) 17 mg/dL 8-26 N BEDSIDE CREATININE (test code = 0.9 mg/dL 0.6-1.3 N CREATBED) GLOMERULAR FILTRATION RATE POC 65 39-90 N (test code = GFRBED)
[2021-07-04 05:16] LABS: Absolute Lymphocytes (CBC) 0.5 K/uL (0.7-4.9); Basophils % 0.1 % (0-1.3); Hematocrit 35.7 % (36.0-45.0); Lymphocytes % 10.6 % (15.3-44.8); MPV 8.8 fL (7.6-11.3); RBC Red Blood Cell Count 4.01 M/uL (3.86-4.86)
[2021-07-04 05:19] LABS: Protime INR 1.25
[2021-07-04] MEDS ORDERED: METOPROLOL TAR 25 MG TAB ONE (05:26)
[2021-07-04] MEDS ORDERED: ASPIRIN 81 MG CHEWABLE TABLET ONE (05:26)
[2021-07-04] MEDS ORDERED: METOPROLOL TARTRATE 5 MG/5 ML INJ IV ONE (05:26)
[2021-07-04 05:46] LABS: Albumin 2.3 g/dL (3.4-5.0); Bilirubin Direct 0.3 mg/dL (0-0.2); Bilirubin Total 0.7 mg/dL (0.2-1.0); Ferritin 766.3 ng/mL (8-388); Protein, Total 6.3 g/dL (6.4-8.2); Thyroid Stimulating Hormone 0.847 uIU/mL (0.360-3.740); Troponin (Emerg Dept Use Only) 0.03 ng/mL (0.0-0.045)
[2021-07-04] MEDS ORDERED: ENOXAPARIN 80 MG/0.8 ML SQ ONE (06:29)
[2021-07-04] MEDS ORDERED: DIGOXIN 0.25 MG/ML AMP ONE (06:29)
[2021-07-04] MEDS ORDERED: dexAMETHasone 10 MG/ML VIAL ONE (06:29)
[2021-07-04] MEDS ORDERED: FAMOTIDINE 20 MG/2 ML VIAL IV ONE (06:29)
--- NOTE | 2021-07-04 06:48 | EDPHYS ---
Physician Documentation [facility] Name: Christine Parson Age: 75 yrs Sex: Female : 1945 Arrival Date: 07/04/2021 Time: 04:27 Bed 2 Private MD: ED Physician Fady Leigh HPI: 07/04 05:45 This 75 yrs old Female presents to ER via EMS with complaints of sob, amauri diarrhea, palpitations and near syncope. 05:45 The patient has shortness of breath at rest, with light activity. Onset: The amauri symptoms/episode began/occurred 3 day(s) ago. Duration: The symptoms are continuous, and are steadily getting worse. The patient's shortness of breath has no apparent modifying factors. The patient or guardian reports chest pain that is located primarily in the substernal area. Onset: 3 day(s) ago. The patient presents with a history of irregular heart beat, heart racing. Context: The symptoms occur with light activity. Historical: - Allergies: 04:27 No Known Allergies; jb4 - Home Meds: 04:27 losartan oral [Active]; Metoprolol Tartrate Oral [Active]; aspirin 81 mg Oral tab jb4 [Active]; - PMHx: 04:27 A-Flutter; jb4 - PSHx: 04:27 Cardiac oblasion; jb4 - Immunization history:: Adult Immunizations up to date. - Social history:: Smoking status: Patient denies any tobacco usage or history of. Patient/guardian denies using alcohol, street drugs. - Family history:: not pertinent. ROS: 05:45 Constitutional: Negative for fever, chills, and weight loss, Eyes: Negative for injury, amauri pain, redness, and discharge, ENT: Negative for injury, pain, and discharge, Neck: Negative for injury, pain, and swelling, Respiratory: Negative for shortness of breath, cough, wheezing, and pleuritic chest pain, Abdomen/GI: Negative for abdominal pain, nausea, vomiting, diarrhea, and constipation, Back: Negative for injury and pain, : Negative for injury, bleeding, discharge, and swelling, Skin: Negative for injury, rash, and discoloration, Neuro: Negative for headache, weakness, numbness, tingling, and seizure, Psych: Negative for depression, anxiety, suicide ideation, homicidal ideation, and hallucinations, Allergy/Immunology: Negative for hives, rash, and allergies, Endocrine: Negative for neck swelling, polydipsia, polyuria, polyphagia, and marked weight changes. 05:45 Cardiovascular: Positive for chest pain, palpitations. Exam: 05:45 Constitutional: This is a well developed, well nourished patient who is awake, alert, amauri and in no acute distress. Head/Face: Normocephalic, atraumatic. Eyes: Pupils equal round and reactive to light, extra-ocular motions intact. Lids and lashes normal. Conjunctiva and sclera are non-icteric and not injected. Cornea within normal limits. Periorbital areas with no swelling, redness, or edema. ENT: Nares patent. No nasal discharge, no septal abnormalities noted. Tympanic membranes are normal and external auditory canals are clear. Oropharynx with no redness, swelling, or masses, exudates, or evidence of obstruction, uvula midline. Mucous membranes moist. Neck: Trachea midline, no thyromegaly or masses palpated, and no cervical lymphadenopathy. Supple, full range of motion without nuchal rigidity, or vertebral point tenderness. No Meningismus. Chest/axilla: Normal chest wall appearance and motion. Nontender with no deformity. No lesions are appreciated. Respiratory: Lungs have equal breath sounds bilaterally, clear to auscultation and percussion. No rales, rhonchi or wheezes noted. No increased work of breathing, no retractions or nasal flaring. Abdomen/GI: Soft, non-tender, with normal bowel sounds. No distension or tympany. No guarding or rebound. No evidence of tenderness throughout. Back: No spinal tenderness. No costovertebral tenderness. Full range of motion. Female : Normal external genitalia. Skin: Warm, dry with normal turgor. Normal color with no rashes, no lesions, and no evidence of cellulitis. MS/ Extremity: Pulses equal, no cyanosis. Neurovascular intact. Full, normal range of motion. Neuro: Awake and alert, GCS 15, oriented to person, place, time, and situation. Cranial nerves II-XII grossly intact. Motor strength 5/5 in all extremities. Sensory grossly intact. Cerebellar exam normal. Normal gait. Psych: Awake, alert, with orientation to person, place and time. Behavior, mood, and affect are within normal limits. 05:45 Cardiovascular: Rate: tachycardic, Rhythm: irregularly irregular, Pulses: Pulses are 4+ in bilateral radial, brachial, femoral, popliteal, posterior tibial and and dorsalis pedis arteries.. Heart sounds: normal, Edema: is not appreciated, JVD: is not appreciated. Vital Signs: 04:20 BP 160 / 64; Pulse 148; Resp 20; Temp 99.2(TE); Pulse Ox 91% on R/A; Weight 83.91 kg jb4 (R); Height 5 ft. 8 in. (172.72 cm) (R); Pain 0/10; 05:25 BP 111 / 68; Pulse 122; Resp 23; Pulse Ox 93% ; ds4 06:15 BP 126 / 73; Pulse 74; Resp 22; Pulse Ox 93% on R/A; jb4 07:00 BP 136 / 87; Pulse 90; Resp 21; Pulse Ox 93% on 2 lpm NC; sv 08:00 BP 154 / 91; Pulse 93; Resp 23; Temp 97.9(TE); Pulse Ox 93% on 2 lpm NC; sv 09:00 BP 150 / 92; Pulse 89; Resp 24; Pulse Ox 93% on 2 lpm NC; sv 10:00 BP 148 / 89; Pulse 99; Resp 20; Pulse Ox 94% on 2 lpm NC; sv 11:00 BP 134 / 89; Pulse 95; Resp 25; Pulse Ox 95% on 2 lpm NC; sv 04:20 Body Mass Index 28.13 (83.91 kg, 172.72 cm) jb4 MDM: 04:52 Patient medically screened. amauri 05:47 Differential diagnosis: Anemia Anxiety Reaction asthma, Bronchitis anxiety, chest wall amauri pain, gastritis, pneumonia, Pulmonary Embolism Unstable Angina. Antibiotic administration: Rocephin and Zithromax given. Differential Diagnosis flu. HEART Score: History: Slightly Suspicious (0), ECG: Non specific repolarization disturbance / LBTB / PM (1), Age: > or = 65 years (2), Risk Factors: > or = 3 Risk factors for atherosclerotic disease (2), [Hypercholesterolemia] [Hypertension] [+ Family HX] [Obesity] Troponin: < or = 1 x Normal Limit (0). The patient was given aspirin in the Emergency Department. The patient's Wells Deep Vein Thrombosis Score was calculated as follows: Total Score: 0. This patient was found to be at low risk for a deep vein thrombosis by using the Well's assessment criteria Heart Rate >100 BPM (1.5 Pts) Total Score: 0-2 Pts- Low Risk. The patient's pulmonary embolism risk score was calculated as follows: the patients heart rate is greater than 100 beats per minute (1.5 Pts) Total Score:. REANNA Risk Score: 1 - patient's age is greater or equal to 65 years, 1 - Three or more CAD risk factors, 1- Known CAD, TOTAL SCORE = 3. Immunization status: Pneumococcal vaccine: Influenza vaccine: Data reviewed: vital signs, nurses notes, lab test result(s), EKG, radiologic studies, doppler, plain films. 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 Interpretation: borderline. 08:52 Counseling: I had a detailed discussion with the patient and/or guardian regarding: the jr8 historical points, exam findings, and any diagnostic results supporting the discharge/admit diagnosis, lab results, radiology results. ED course: Patient has done markedly better on oxygen at 2 to 3 L/min via nasal cannula. Sitting between 93 to 94% on oxygen at this time. Rate controlled at this time as well with her atrial fibrillation that came back. I have discussed this case with Dr. Martinez and he is okay with her going home as long as we anticoagulate her which patient is receptive to. Patient will be on Eliquis 5 mg p.o. twice daily. We will continue her metoprolol [address] Martinez will also call her today and set up appointment for the next 24 to 48 hours. Patient still has moderate bilateral opacities consistent with Covid pneumonia and is requiring oxygen via nasal cannula. I would like to establish home oxygen therapy at this time so we can try to get patient home. Social work has been notified.. 07/04 04:51 Order name: Basic Metabolic Panel; Complete Time: 06:38 amauri 07/04 04:51 Order name: CBC with Diff; Complete Time: 06:38 amauri 07/04 04:51 Order name: LFT's; Complete Time: 06:38 amauri 07/04 04:51 Order name: Magnesium; Complete Time: 06:38 07/04 04:51 Order name: NT PRO-BNP; Complete Time: 06:38 07/04 04:51 Order name: PT-INR; Complete Time: 06:38 07/04 04:51 Order name: Troponin (emerg Dept Use Only); Complete Time: 06:38 07/04 04:51 Order name: XRAY Chest (1 view); Complete Time: 08:40 07/04 04:51 Order name: D-Dimer; Complete Time: 06:38 07/04 04:51 Order name: TSH; Complete Time: 06:38 07/04 04:51 Order name: Ferritin; Complete Time: 06:38 [facility] 07/04 04:51 Order name: CRP; Complete Time: 06:38 [facility] 07/04 05:44 Order name: CT Chest For PE Angio 07/04 04:50 Order name: EKG; Complete Time: 04:51 [facility] 07/04 04:50 Order name: Cardiac monitoring; Complete Time: 04:58 [facility] 07/04 04:50 Order name: EKG - Nurse/Tech; Complete Time: 04:58 07/04 04:50 Order name: IV Saline Lock; Complete Time: 04:58 07/04 04:50 Order name: Labs collected and sent; Complete Time: 04:58 07/04 04:50 Order name: O2 Per Protocol; Complete Time: 04:58 07/04 04:50 Order name: O2 Sat Monitoring; Complete Time: 04:58 07/04 10:50 Order name: Diet Regular; Complete Time: 10:50 sv Administered Medications: 05:15 Drug: Aspirin Chewable Tablet 162 mg Route: PO; jb4 06:38 Follow up: Response: No adverse reaction jb4 05:15 Drug: Lopressor (metoprolol TARTRATE)) 25 mg Route: PO; jb4 06:38 Follow up: Response: No adverse reaction jb4 05:15 Drug: Lopressor (metoprolol) 2.5 mg Route: IVP; Site: right antecubital; jb4 06:37 Follow up: Response: No adverse reaction jb4 05:20 Not Given (given by EMS): Tylenol 650 mg PO once jb4 05:29 Drug: Lopressor (metoprolol) 2.5 mg Route: IVP; Site: right antecubital; jb4 06:38 Follow up: Response: No adverse reaction jb4 06:34 Drug: Decadron - Dexamethasone 10 mg Route: IVP; Site: right antecubital; jb4 07:00 Follow up: Response: No adverse reaction sv 06:35 Drug: Pepcid (famotidine) 20 mg Route: IVP; Site: right antecubital; jb4 07:00 Follow up: Response: No adverse reaction sv 06:37 Drug: Lovenox (enoxaparin) 1 mg/kg Route: Sub-Q; Site: right lower abdomen; jb4 07:00 Follow up: Response: No adverse reaction sv 06:37 Drug: Digoxin 0.5 mg Route: IVP; Site: right antecubital; jb4 07:00 Follow up: Response: No adverse reaction sv 08:01 Drug: Rocephin (cefTRIAXone) 1 grams Route: IV; Rate: per protocol; Site: right sv antecubital; 08:02 Follow up: Response: No adverse reaction; IV Status: Completed infusion; IV Intake: 10mlsv 10:00 Drug: Zithromax (azithromycin) 500 mg Route: IVPB; Infused Over: 1 hrs; Site: right sv antecubital; 11:00 Follow up: Response: No adverse reaction; IV Status: Completed infusion; IV Intake: sv 250ml Disposition: 07/05 07:19 Co-signature as Attending Physician, Fady Leigh MD I agree with the assessment and amauri plan of care. Disposition Summary: 07/04/21 12:36 Discharge Ordered Location: Home jr Problem: new(07/04/21 12:36) jr8 Symptoms: have improved(07/04/21 12:36) jr8 Condition: Stable(07/04/21 12:36) jr8 Diagnosis - Pneumonia due to SARS-associated coronavirus jr8 - Persistent atrial fibrillation jr8 Followup: jr8 - With: Samir Martinez MD - When: 2 - 3 days - Reason: Recheck today's complaints, Continuance of care, Re-evaluation by your physician Followup: jr8 - With: Daniele Schulz MD - When: 2 - 3 days - Reason: Recheck today's complaints, Continuance of care, Re-evaluation by your physician Discharge Instructions: - Discharge Summary Sheet jr8 - Atrial Fibrillation jr8 - COVID-19 jr8 Forms: - Medication Reconciliation Form jr8 - Thank You Letter jr8 - Antibiotic Education jr8 - Prescription Opioid Use jr8 Prescriptions: - Prednisone 20 mg Oral Tablet - take 1 tablet by ORAL route once daily for 5 days; 5 tablet; Refills: 0, jr8 Product Selection Permitted - Eliquis 5 mg Oral tablet - take 1 tablet by ORAL route 2 times per day; 60 tablet; Refills: 0, Product jr8 Selection Permitted Signatures: Dispatcher [employer] EDMS Alessandra Chambers RN Fady Montalvo MD MD cha Roszak, Josh, PA PA jr8 Mj Louis RN RN jb4 Corrections: (The following items were deleted from the chart) 07/04 04:57 04:51 Cardiac monitoring [place]. [place] [id number] 04:57 04:51 EKG - Nurse/Tech ordered. [place] [id number] 04:57 04:51 IV Saline Lock ordered. [place] [id number] 04:57 04:51 Labs collected and sent ordered. [place] [id number] 04:57 04:51 Oxygen Per Protocol ordered. [place] [id number] 04:57 04:51 O2 Sat Monitoring ordered. [place] [id number] 05:10 04:51 Chest Single View+RAD.RAD.BRZ ordered. EDMI EDMS 06:49 06:[address] [facility] 08:51 04:51 BASIC METABOLIC PANEL+C.LAB.BRZ ordered. EDMI EDMS 08:51 04:51 CBC+H.LAB.BRZ ordered. EDMI EDMS 08:51 04:51 HEPATIC FUNCTION+C.LAB.BRZ ordered. EDMS EDMS 08:51 04:51 MAGNESIUM+C.LAB.BRZ ordered. EDMS EDMS 08:51 04:51 PROBNP+C.LAB.BRZ ordered. EDMS EDMS 08:51 04:51 PROTIME (+INR)+COAG.LAB.BRZ ordered. EDMS EDMS 08:51 04:51 TROPONIN (EMERG DEPT USE ONLY)+C.LAB.BRZ ordered. 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 amauri 12:33 06:48 [facility] amauri jr8 12:33 06:48 Higher level of care amauri jr8 12:33 06:48 Fair amauri jr8 12:33 06:48 new amauri jr8 12:33 06:48 have improved amauri jr8 12:33 06:48 Coronavirus infection, unspecified amauri jr8 12:33 06:48 Unspecified atrial fibrillation amauri jr8 12:33 06:48 Weakness amauri jr8 12:33 06:48 Syncope Near amauri jr8 12:33 06:48 Hypoxemia amauri jr8 12:33 06:49 [address] [facility] amauri jr8 12:33 06:49 Diarrhea, unspecified amauri jr8
--- NOTE | 2021-07-04 06:48 | ER ---
Nurse's Notes [facility] Name: Christine Parson Age: 75 yrs Sex: Female : 1945 Arrival Date: 07/04/2021 Time: 04:27 Bed 2 Private MD: Diagnosis: Pneumonia due to SARS-associated coronavirus;Persistent atrial fibrillation Presentation: 07/04 04:20 Chief complaint: EMS states: Pt has a history of A-Flutter, is currently Covid-19 jb4 positive. Reports generalized weakness. Passed out multiple times. Heart rate ranges between 80's-140's. 04:20 Coronavirus screen: Client presents with at least one sign or symptom that may indicate jb4 coronavirus-19. Standard/surgical mask placed on the client. Provider contacted for isolation considerations. Client reports previous positive COVID test result. Ebola Screen: No symptoms or risks identified at this time. Initial Sepsis Screen: Does the patient meet any 2 criteria? HR > 90 bpm. Yes Does the patient have a suspected source of infection? No. Patient's initial sepsis screen is negative. Risk Assessment: Do you want to hurt yourself or someone else? Patient reports no desire to harm self or others. Onset of symptoms was July 04, 2021. Transition of care: patient was not received from another setting of care. 04:20 Method Of Arrival: EMS: [facility] jb4 04:20 Acuity: PRIYA 2 jb4 Historical: - Allergies: 04:27 No Known Allergies; jb4 - Home Meds: 04:27 losartan oral [Active]; Metoprolol Tartrate Oral [Active]; aspirin 81 mg Oral tab jb4 [Active]; - PMHx: 04:27 A-Flutter; jb4 - PSHx: 04:27 Cardiac oblasion; jb4 - Immunization history:: Adult Immunizations up to date. - Social history:: Smoking status: Patient denies any tobacco usage or history of. Patient/guardian denies using alcohol, street drugs. - Family history:: not pertinent. Screenin:27 Abuse screen: Denies threats or abuse. Nutritional screening: No deficits noted. jb4 Tuberculosis screening: No symptoms or risk factors identified. Fall Risk None identified. Assessment: 04:27 General: Appears in no apparent distress. uncomfortable, Behavior is calm, cooperative, jb4 appropriate for age. Pain: Denies pain. Neuro: Level of Consciousness is awake, alert, obeys commands, Oriented to person, place, time, situation. Cardiovascular: Patient's skin is warm and dry. Respiratory: Airway is patent Respiratory effort is even, unlabored, Respiratory pattern is regular, symmetrical. GI: No signs and/or symptoms were reported involving the gastrointestinal system. : No signs and/or symptoms were reported regarding the genitourinary system. EENT: No signs and/or symptoms were reported regarding the EENT system. Derm: Skin is intact, Skin is pink, warm \T\ dry. Musculoskeletal: Circulation, motion, and sensation intact. Range of motion: intact in all extremities. 05:30 Reassessment: Patient appears in no apparent distress at this time. Patient and/or jb4 family updated on plan of care and expected duration. Pain level reassessed. Patient is alert, oriented x 3, equal unlabored respirations, skin warm/dry/pink. 06:30 Reassessment: Patient appears in no apparent distress at this time. Patient and/or jb4 family updated on plan of care and expected duration. Pain level reassessed. Patient is alert, oriented x 3, equal unlabored respirations, skin warm/dry/pink. 07:30 General: Appears in no apparent distress. comfortable, well developed, Behavior is sv calm, cooperative, appropriate for age. Pain: Denies pain. Neuro: Level of Consciousness is awake, alert, obeys commands, Oriented to person, place, time, situation, Speech is normal. Cardiovascular: Heart tones S1 S2 present Patient's skin is warm and dry. Pulses are palpable in right radial artery and left radial artery Rhythm is atrial fibrillation. Respiratory: Airway is patent Respiratory effort is even, unlabored, Respiratory pattern is regular, symmetrical, Breath sounds are clear bilaterally. GI: Bowel sounds present X 4 quads. Derm: Skin is intact, Skin is pink, warm \T\ dry. 08:00 Reassessment: Pt updated on POC and transfer. Pt stated that she does not want to be sv transferred, she would rather stay here if able to. Informed Hasmukh MARIE. 08:00 Reassessment: Patient appears in no apparent distress at this time. Patient and/or sv family updated on plan of care and expected duration. Pain level reassessed. Patient is alert, oriented x 3, equal unlabored respirations, skin warm/dry/pink. 10:00 Reassessment: Patient appears in no apparent distress at this time. Patient and/or sv family updated on plan of care and expected duration. Pain level reassessed. Patient is alert, oriented x 3, equal unlabored respirations, skin warm/dry/pink. 11:00 Reassessment: Patient appears in no apparent distress at this time. No changes from sv previously documented assessment. Patient and/or family updated on plan of care and expected duration. Pain level reassessed. Patient is alert, oriented x 3, equal unlabored respirations, skin warm/dry/pink. 12:30 Reassessment: Pt given lunch tray. sv 13:33 Reassessment: Patient appears in no apparent distress at this time. Patient and/or sv family updated on plan of care and expected duration. Pain level reassessed. Patient is alert, oriented x 3, equal unlabored respirations, skin warm/dry/pink. Vital Signs: 04:20 BP 160 / 64; Pulse 148; Resp 20; Temp 99.2(TE); Pulse Ox 91% on R/A; Weight 83.91 kg jb4 (R); Height 5 ft. 8 in. (172.72 cm) (R); Pain 0/10; 05:25 BP 111 / 68; Pulse 122; Resp 23; Pulse Ox 93% ; ds4 06:15 BP 126 / 73; Pulse 74; Resp 22; Pulse Ox 93% on R/A; jb4 07:00 BP 136 / 87; Pulse 90; Resp 21; Pulse Ox 93% on 2 lpm NC; sv 08:00 BP 154 / 91; Pulse 93; Resp 23; Temp 97.9(TE); Pulse Ox 93% on 2 lpm NC; sv 09:00 BP 150 / 92; Pulse 89; Resp 24; Pulse Ox 93% on 2 lpm NC; sv 10:00 BP 148 / 89; Pulse 99; Resp 20; Pulse Ox 94% on 2 lpm NC; sv 11:00 BP 134 / 89; Pulse 95; Resp 25; Pulse Ox 95% on 2 lpm NC; sv 04:20 Body Mass Index 28.13 (83.91 kg, 172.72 cm) jb4 ED Course: 04:27 Patient arrived in ED. jb4 04:27 Arm band placed on right wrist. jb4 04:27 Patient has correct armband on for positive identification. Bed in low position. Call jb4 light in reach. Side rails up X 1. 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 Pulse ox on. NIBP on. 04:27 Inserted saline lock: 18 gauge in right antecubital area, using aseptic technique. jb4 Blood collected. 04:48 Mj Louis, RN is Primary Nurse. jb4 04:48 Fady Leigh MD is Attending Physician. amauri 04:50 Triage completed. jb4 05:35 XRAY Chest (1 view) In Process Unspecified. EDMS 06:24 CT Chest For PE Angio In Process Unspecified. EDMS 06:45 No provider procedures requiring assistance completed. jb4 07:17 Primary Nurse role handed off by Mj Louis RN sv 07:17 Alessandra Chambers, KAYLAH is Primary Nurse. sv 08:39 Hasmukh Vo PA is PHCP. jr8 09:14 initiated transfer to [facility], no beds available in the [facility] system for bd a covid pt. [facility] is closed for covid pts, per [place]. 09:20 transfer cancelled, per hasmukh MARIE. bd 12:34 Samir Martinez MD is Referral Physician. jr8 12:34 Daniele Schulz MD is Referral Physician. jr8 13:33 IV discontinued, intact, bleeding controlled, No redness/swelling at site. Pressure sv dressing applied. Administered Medications: 05:15 Drug: Aspirin Chewable Tablet 162 mg Route: PO; jb4 06:38 Follow up: Response: No adverse reaction jb4 05:15 Drug: Lopressor (metoprolol TARTRATE)) 25 mg Route: PO; jb4 06:38 Follow up: Response: No adverse reaction jb4 05:15 Drug: Lopressor (metoprolol) 2.5 mg Route: IVP; Site: right antecubital; jb4 06:37 Follow up: Response: No adverse reaction jb4 05:20 Not Given (given by EMS): Tylenol 650 mg PO once jb4 05:29 Drug: Lopressor (metoprolol) 2.5 mg Route: IVP; Site: right antecubital; jb4 06:38 Follow up: Response: No adverse reaction jb4 06:34 Drug: Decadron - Dexamethasone 10 mg Route: IVP; Site: right antecubital; jb4 07:00 Follow up: Response: No adverse reaction sv 06:35 Drug: Pepcid (famotidine) 20 mg Route: IVP; Site: right antecubital; jb4 07:00 Follow up: Response: No adverse reaction sv 06:37 Drug: Lovenox (enoxaparin) 1 mg/kg Route: Sub-Q; Site: right lower abdomen; jb4 07:00 Follow up: Response: No adverse reaction sv 06:37 Drug: Digoxin 0.5 mg Route: IVP; Site: right antecubital; jb4 07:00 Follow up: Response: No adverse reaction sv 08:01 Drug: Rocephin (cefTRIAXone) 1 grams Route: IV; Rate: per protocol; Site: right sv antecubital; 08:02 Follow up: Response: No adverse reaction; IV Status: Completed infusion; IV Intake: 10mlsv 10:00 Drug: Zithromax (azithromycin) 500 mg Route: IVPB; Infused Over: 1 hrs; Site: right sv antecubital; 11:00 Follow up: Response: No adverse reaction; IV Status: Completed infusion; IV Intake: sv 250ml Intake: 08:02 IV: 10ml; Total: 10ml. sv 11:00 IV: 250ml; Total: 260ml. sv Outcome: 06:48 ER care complete, transfer ordered by . amauri 12:36 Discharge ordered by . xochitl 13:33 Discharged to home via wheelchair, with friend, with home O2. sv 13:33 Condition: stable 13:33 Discharge instructions given to patient, Instructed on discharge instructions, follow up and referral plans. medication usage, Demonstrated understanding of instructions, follow-up care, medications, Prescriptions given X 2. 13:34 Patient left the ED. sv Signatures: Dispatcher [employer] EDMS Aileen Antonio Stephanie, RN RN Fady Potts MD MD cha Roszak, Josh, PA PA jr8 Sacha Arenas4 Mj Louis, KAYLAH RN jb4 Corrections: (The following items were deleted from the chart) 05:59 04:20 BP 160 / 64; Pulse 148bpm; Resp 20bpm; Pulse Ox 91% RA; Temp 99.2F Temporal; Pain jb4 0/10; jb4
--- NOTE | 2021-07-04 07:36 | RAD REPORT ---
EXAM DESCRIPTION: RAD - Chest Single View - 07/04/2021 5:36 am CLINICAL HISTORY: Congestion;Cough;Chest pain COMPARISON: Chest For Pe Angio dated 07/04/2021 FINDINGS: Scattered pulmonary airspace opacities which are partially obscured by the calcified breas t prostheses per The heart size is within normal limits.No acute osseous abnormality. No significant pleural effusions or pneumothorax. Calcified bilateral breast prostheses per IMPRESSION: Multifocal pneumonia better demonstrated on the subsequent chest CT.
[2021-07-04] MEDS ORDERED: AZITHROMYCIN IV 500 MG in NA CHLORIDE 0.9% 250 ML IVPB ONE (08:00)
[2021-07-04] MEDS ORDERED: CEFTRIAXONE/SWI 1gm 1 GM/10 ML SYR ONE (08:10)
--- NOTE | 2021-07-04 10:26 | RAD REPORT ---
EXAM DESCRIPTION: CT - Chest For Pe Angio - 07/04/2021 7:33 am COMPARISON: None. CLINICAL HISTORY: Chest pain;Palpitations TECHNIQUE: CT images through the chest with IV contrast using the pulmonary embolus protocol. Multip lanar reformats. Automated exposure control was utilized on this examination as a dose lowering techn ique. FINDINGS: Pulmonary arteries and vascular: Diagnostic quality bolus. No filling defects. Moderate at herosclerosis. Heart and mediastinum: Heart size is mildly enlarged. Mediastinal lymph nodes are increased in number but not in size and are likely reactive. Thyroid gland: Visualized portions are normal. Lungs: Multifocal bilateral consolidations are present. Airways: No filling defects. No bronchiectasis. Pleura: No pneumothorax. No significant pleural effusion. Subphrenic structures: Within normal limits. Musculoskeletal and soft tissues: Breast implants with chronic intracapsular ruptures. IMPRESSION: 1. No evidence of pulmonary embolus. 2. Multifocal pneumonia. Commonly reported imaging features of COVID-19 pneumonia are present. Other processes such as influenza pneumonia and organizing pneumonia, as can be seen with drug toxicity and connective tissue disease, can cause similar imaging pattern. 3. Mild cardiomegaly. 4. Moderate atherosclerosis. Electronically signed by: Mo Dorsey MD 07/04/2021 6:43 AM CDT Due to temporary technical issues with the PACS/Fluency reporting system, reports are being signed by the in house radiologist without review as a courtesy to ensure prompt reporting. The interpreting r adiologist is fully responsible for the content of the report.
[2021-07-04 13:52] VITALS: TEMP 97.9
[2021-07-04 14:02] VITALS: BP 134/89; O2SAT 95
--- NOTE | 2021-07-04 16:25 | EKG ---
Test Date: 2021-07-04 Test Time: 04:33:42 Senior User Experience Architect: KIMBERLY MEASUREMENT RESULTS: Intervals: Rate: 137 ND: 128 QRSD: 76 QT: 370 QTc: 558 Lohman: P: 110 ND: 128 QRS: 11 T: 32 INTERPRETIVE STATEMENTS: Sinus tachycardia with frequent and consecutive premature ventricular complexes and fusion complexes Minimal voltage criteria for LVH, may be normal variant ST & T wave abnormality, consider inferior ischemia ST & T wave abnormality, consider anterior ischemia Abnormal ECG No previous ECG available for comparison Electronically Signed On 07-04-21 16:22:54 CDT by Samir Martinez
== END 2021-07-04 13:34 | disposition home or self-care (01) ==
LOC: ER 04:24
DX: U07.1 COVID-19 (principal); J12.82 Pneumonia due to coronavirus disease 2019; I48.19 Other persistent atrial fibrillation; Z79.82 Long term (current) use of aspirin
CPT/HCPCS: 96365; 93005; 85025; 80048; 36415; 83735; 85610; 85379; 80076; 84443; 84484; 82728; 83880; 86140; 71275; 71045; 96375; 96372; 99285; Q9967; J1160; J0456; J1100; J0696; J7050

== ENCOUNTER 2024-04-12 13:32 | Emergency (ER) | payer OTHER ==
[2024-04-12 14:05] LABS: Absolute Basophils 0.1 K/uL (0-0.5); Absolute Eosinophils 0.2 K/uL (0-0.5); Absolute Lymphocytes (CBC) 1.6 K/uL (0.7-4.9); Absolute Monocytes 0.7 K/uL (0.1-1.3); Basophils % 0.9 % (0-1.3); Eosinophils % 2.9 % (0-4.4); Hematocrit 36.8 % (36.0-45.0); Hemoglobin 12.2 g/dL (12.0-15.0); Lymphocytes % 24.4 % (15.3-44.8); MCH 29.7 pg (27.0-35.0); MCHC 33.2 g/dL (32.0-36.0); MCV 89.6 fL (80-100); MPV 8.7 fL (7.6-11.3); Monocytes % 11.4 % (3.3-12.3); Neutrophils % 60.4 % (41.7-73.7); Nucleated Red Blood Cells % 0.1 % (0-0); Platelets 247 thou/uL (152-406); Red Cell Distribution Width 13.8 % (12.1-15.2)
--- NOTE | 2024-04-12 14:05 | RAD REPORT ---
EXAM DESCRIPTION: CT - Ct Stroke Brain Wo Cont - 04/12/2024 2:00 pm CLINICAL HISTORY: STROKE ALERT COMPARISON: No comparisons TECHNIQUE: All CT scans are performed using dose optimization technique as appropriate and may inclu de automated exposure control or mA/KV adjustment according to patient size. FINDINGS: No intracranial hemorrhage, hydrocephalus or extra-axial fluid collection.No areas of brai n edema or evidence of midline shift. The paranasal sinuses and mastoids are clear. The calvarium is intact. IMPRESSION: No acute intracranial abnormality. Conveyed to Dr. Leigh by Dr. Orozco at 1344 on 04/12/24
[2024-04-12 14:07] LABS: PT Prothrombin Time 11.1 SECONDS (9.5-12.5); Protime INR 1.01
--- NOTE | 2024-04-12 14:07 | RAD REPORT ---
EXAM DESCRIPTION: CT - Neck Angio - 04/12/2024 2:00 pm CLINICAL HISTORY: PAIN COMPARISON: No comparisons TECHNIQUE: CT angiography of the neck vessels was performed with maximum intensity reformatted image s. CAROTID STENOSIS REFERENCE USING NASCET CRITERIA: Mild - <50% stenosis. Moderate - 50-69% stenosis. Severe - 70-94% stenosis. Near occlusion - 95-99% stenosis. Occluded - 100% stenosis. All CT scans are performed using dose optimization technique as appropriate and may include automated exposure control or mA/KV adjustment according to patient size. FINDINGS: A left aortic arch is identified with normal three vessel configuration of the great vesse ls. No significant flow abnormality is seen of the common carotid bilaterally. No significant stenosis is identified involving the cervical segments of both internal carotid arteri es. Normal flow is seen within both vertebral arteries. IMPRESSION: No significant flow abnormality of the neck vessels is identified.
--- NOTE | 2024-04-12 14:08 | RAD REPORT ---
EXAM DESCRIPTION: CT - Head angio - 04/12/2024 2:00 pm CLINICAL HISTORY: STROKE ALERT COMPARISON: Ct Stroke Brain Wo Cont dated 04/12/2024 TECHNIQUE: CT angiography of the head was performed with maximum intensity reformatted images. 3D ma ximum intensity pixel (MIP) reconstructions were created All CT scans are performed using dose optimization technique as appropriate and may include automated exposure control or mA/KV adjustment according to patient size. FINDINGS: Anterior circulation: Intracranial calcified plaque involving the bilateral ICAs. No aneurysm or large vessel occlusion. No hemodynamically significant stenosis. No arteriovenous malformation identified. Posterior circulation: Mild calcified plaque associated with the left vertebral artery. No aneurysm or large vessel occlusio n. No hemodynamically significant stenosis. No arteriovenous malformation identified. IMPRESSION: No significant flow abnormality is detected.
--- NOTE | 2024-04-12 14:20 | ER ---
Nurse's Notes [facility] Name: Christine Parson Age: 78 yrs Sex: Female : 1945 Arrival Date: 04/12/2024 Time: 13:32 Bed 18 Private MD: Diagnosis: Cerebral infarction, unspecified-acute;Essential (primary) hypertension Presentation: 04/12 14:00 Chief complaint: Patient states: Having trouble getting her words out and couldn't get ll1 out of her vehicle. EMS states: EMS was called for a patient that was disoriented. Found in vehicle at [facility] confused, aphasic, R sided weak. BP 198/87, blood sugar 161, other vitals WNL. Coronavirus screen: Client denies travel out of the [place] in the last 14 days. At this time, the client does not indicate any symptoms associated with coronavirus-19. Ebola Screen: Patient denies travel to an Ebola-affected area in the 21 days before illness onset. Initial Sepsis Screen: Does the patient meet any 2 criteria? No. Patient's initial sepsis screen is negative. Does the patient have a suspected source of infection? No. Patient's initial sepsis screen is negative. Risk Assessment: Do you want to hurt yourself or someone else? Patient reports no desire to harm self or others. Onset of symptoms was April 12, 2024. 14:00 Method Of Arrival: EMS: [facility] ll1 14:00 Acuity: PRIYA 2 ll1 Triage Assessment: 14:11 General: Appears uncomfortable, Behavior is cooperative, appropriate for age, anxious. ll1 Neuro: Reports weakness in right arm and right leg aphasia. 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 - Infectious Disease History:: Denies. - Social history:: Smoking status: Patient denies any tobacco usage or history of. - Family history:: not pertinent. Screenin:10 VAN Screening: Arm Drift: Patient shows no arm weakness. Visual Disturbance: No visual tl4 disturbance noted. Aphasia: Expressive aphasia noted. Provider notified of +VAN scoring. Neglect: No neglect noted. 14:42 Assawoman Swallow Protocol Exclusion Criteria: Exclusion Criteria Result: Proceed Brief tl4 Cognitive Screen What is your name? Normal, Where are you right now? Normal, What year is it? Normal. Oral Mechanism Examination Facial Symmetry: Normal, Motion: Normal, Lip Closure: Normal, Oral Mechanism Result: Normal. 3 oz Water Swallow Challenge: Pt able to drink all water without stopping, coughing, choking or throat clearing: Yes Result: PASS. 14:49 [facility] ED Fall Risk Assessment (Adult) History of falling in the last 3 months, tl4 including since admission No falls in past 3 months (0 pts) Confusion or Disorientation No (0 pts) Intoxicated or Sedated No (0 pts) Impaired Gait No (0 pts) Mobility Assist Device Used No (0 pt) Altered Elimination No (0 pt) Score/Fall Risk Level 0 - 2 = Low Risk Oriented to surroundings, Maintained a safe environment, Educated pt \T\ family on fall prevention, incl call for assistance when getting out of bed, Assessed \T\ reinforced patient's understanding of fall precautions. Abuse screen: Denies threats or abuse. Denies injuries from another. Nutritional screening: No deficits noted. Tuberculosis screening: No symptoms or risk factors identified. Assessment: 14:10 General: Appears in no apparent distress. Behavior is cooperative. Pain: Denies pain. tl4 Neuro: Level of Consciousness is awake, alert, obeys commands, Oriented to person, place, situation, Mechanical Spreader Operator are equal bilaterally Moves all extremities. Full function Speech is normal, Facial symmetry appears normal, Pupils are PERRLA, Pupil Size: 3mm Intact Reports dizziness, Denies weakness blurred vision headache. Cardiovascular: Capillary refill < 3 seconds Patient's skin is warm and dry. Respiratory: Airway is patent Respiratory effort is even, unlabored, Respiratory pattern is regular, symmetrical, Breath sounds are clear bilaterally. GI: Reports nausea. : No signs and/or symptoms were reported regarding the genitourinary system. EENT: No signs and/or symptoms were reported regarding the EENT system. Derm: No signs and/or symptoms reported regarding the dermatologic system. Musculoskeletal: No signs and/or symptoms reported regarding the musculoskeletal system. 14:30 Reassessment: Patient and/or family updated on plan of care and expected duration. Pain tl4 level reassessed. Patient is alert, oriented x 3, equal unlabored respirations, skin warm/dry/pink. Pt denies any complaints. Pt denies any needs at this time. Family at bedside. 14:45 Reassessment: Patient and/or family updated on plan of care and expected duration. Pain tl4 level reassessed. Patient is alert, oriented x 3, equal unlabored respirations, skin warm/dry/pink. Pt denies any complaints at this time. Pt given verbal reassurance. Family at bedside. 14:55 Reassessment: Report to KAYLAH Sequeira at [facility]. Questions answered. tl4 15:00 Reassessment: Patient is alert, oriented x 3, equal unlabored respirations, skin tl4 warm/dry/pink. Pt denies any complaints currently Patient denies pain at this time. 15:15 Reassessment: Patient and/or family updated on plan of care and expected duration. Pain tl4 level reassessed. Patient is alert, oriented x 3, equal unlabored respirations, skin warm/dry/pink. Pt denies any complaints or symptoms. Family at bedside. 15:29 Reassessment: Patient is alert, oriented x 3, equal unlabored respirations, skin tl4 warm/dry/pink. Pt currently denies all complaints. Family at bedside. Report to EMS at bedside with questions answered. Vital Signs: 14:10 BP 190 / 109; Pulse 76; Resp 17; ll1 14:15 BP 182 / 86; Pulse 71; Resp 19; Pulse Ox 99% ; Weight 97.07 kg; tl4 14:30 BP 190 / 84; Pulse 70; Resp 19; Pulse Ox 98% on R/A; tl4 14:45 BP 176 / 80; Pulse 70; Resp 19; Pulse Ox 100% on R/A; tl4 15:00 BP 175 / 91; Pulse 71; Resp 12; Pulse Ox 100% on R/A; tl4 15:15 BP 182 / 90; Pulse 82; Resp 22; Pulse Ox 97% on R/A; tl4 15:25 BP 174 / 80; Pulse 74; Resp 16; Temp 97.9(O); Pulse Ox 99% on R/A; Pain 0/10; tl4 15:25 Pain Scale: Adult tl4 NIH Stroke Scale Scores: 14:10 NIHSS Score: 3 tl4 14:17 NIHSS Score: 3 amauri 15:25 NIHSS Score: 2 tl4 ED Course: 13:37 Patient arrived in ED. ll1 13:41 Fady Leigh MD is Attending Physician. amauri 13:48 Initial lab(s) drawn, by me, sent to lab. Inserted saline lock: 22 gauge in left ll1 forearm, using aseptic technique. Blood collected. 13:[address] hb 13:59 Arm band placed on Patient placed in an exam room, on a stretcher. ll1 14:01 CT Stroke Brain w/o Contrast In Process Unspecified. EDMS 14:01 CT Neck Angio In Process Unspecified. EDMS 14:02 CT Head Angio In Process Unspecified. EDMS 14:03 Triage completed. ll1 14:09 Brian Ang, KAYLAH is Primary Nurse. tl4 14:12 XRAY Chest (1 view) In Process Unspecified. EDMS 15:[address] Leigh started transfer to [facility]'s 1425 Dr. Russell Trinidad accepted sp pt to ER 1426 George Liao admin approval [phone] to the ER faxed face sheet to [phone]. [id number] talked to [facility] for transport to [facility]. 15:10 No provider procedures requiring assistance completed. Patient transferred, IV remains tl4 in place. 15:15 Patient has correct armband on for positive identification. Placed in gown. Bed in low tl4 position. Call light in reach. Side rails up X 1. Provided Education on: Procedure Consent. Client placed on continuous cardiac and pulse oximetry monitoring. NIBP monitoring applied. laboratory monitor on. Door closed. Noise minimized. Moved to private room. Warm blanket given. Pillow given. Administered Medications: 14:45 Drug: Famotidine IVP 20 mg IVP once; dilute with 10 mL 0.9% NaCl; give over 2 minutes tl4 Route: IVP; Infused Over: 2 mins; Site: left antecubital; 15:14 Follow up: Response: No adverse reaction tl4 14:50 Drug: TNK FOR STROKE - Tenecteplase IV 0.25 mg/kg IV at per protocol once; MAX tl4 DOSE 25 mg, IVP over 5 seconds {Co-Signature: cp4 (Mary Villafana).} Route: IV; Rate: per protocol; [facility]; 14:57 Follow up: Response: No adverse reaction; IV Status: Completed infusion tl4 14:53 Drug: foLIC Acid IVPB 1 mg IVPB once Route: IVPB; Infused Over: 5 mins; Site: left [address]; 15:14 Follow up: Response: No adverse reaction; IV Status: Completed infusion tl4 15:14 Drug: NS 0.9% IV 1000 ml IV at 1 bolus Per protocol; 1000 mL bolus Route: IV; Rate: 1 tl4 bolus; [facility]; 15:26 Follow up: Response: No adverse reaction; IV Status: Infusion continued; IV Intake: tl4 250ml 15:14 Drug: Labetalol IV 10 mg IV at per protocol once Route: IV; Rate: per protocol; Site: [facility] left [facility]; 15:26 Follow up: Response: No adverse reaction; IV Status: Completed infusion tl4 Medication: 14:49 VIS not applicable for this client. tl4 Intake: 15:26 IV: 250ml; Total: 250ml. tl4 Outcome: 14:20 ER care complete, transfer ordered by amauri 15:30 Transferred by ground EMS to [facility], [facility], tl4 15:30 Condition: stable 15:30 Instructed on the need for transfer, 15:44 Patient left the ED. tl4 NIH Stroke Scale - NIH Stroke Score Date: 04/12/2024 Time: 14:10 Total Score = 3 10. Dysarthria (speech clarity - read or repeat words) - 0(Normal) 11. Extinction and Inattention (visual/tactile/auditory/spatial/personal) - 0(No abnormality) 1a. Level of Consciousness (LOC) - 0(Alert) 1b. Level of Consciousness (LOC) (Month \T\ Age) - 0(Both) 1c. LOC Commands (Open \T\ Closes Eyes/Manager Star) - 0(Both) 2. Best Gaze (Lateral Gaze Paresis) - 0(Normal) 3. Visual Field Loss - 0(No visual loss) 4. Facial Palsy - 0(Normal) 5a. Left Arm: Motor (10-second hold) - 0(No drift) 5b. Right Arm: Motor (10-second hold) - 0(No drift) 6a. Left Leg: Motor (5-second hold - always test supine) - 0(No drift) 6b. Right Leg: Motor (5-second hold - always test supine) - 0(No drift) 7. Limb Ataxia (finger/nose \T\ heel/pruitt - test with eyes open) - 1(Present in one limb) 8. Sensory Loss (pinprick arms/legs/face) - 1(Mild to moderate loss) 9. Best Language: Aphasia (description/naming/reading) - 1(Mild to moderate aphasia) Initials: tl4 NIH Stroke Scale - NIH Stroke Score Date: 04/12/2024 Time: 14:17 Total Score = 3 10. Dysarthria (speech clarity - read or repeat words) - 0(Normal) 11. Extinction and Inattention (visual/tactile/auditory/spatial/personal) - 0(No abnormality) 1a. Level of Consciousness (LOC) - 0(Alert) 1b. Level of Consciousness (LOC) (Month \T\ Age) - 0(Both) 1c. LOC Commands (Open \T\ Closes Eyes/Manager Star) - 0(Both) 2. Best Gaze (Lateral Gaze Paresis) - 0(Normal) 3. Visual Field Loss - 0(No visual loss) 4. Facial Palsy - 0(Normal) 5a. Left Arm: Motor (10-second hold) - 0(No drift) 5b. Right Arm: Motor (10-second hold) - 0(No drift) 6a. Left Leg: Motor (5-second hold - always test supine) - 0(No drift) 6b. Right Leg: Motor (5-second hold - always test supine) - 0(No drift) 7. Limb Ataxia (finger/nose \T\ heel/pruitt - test with eyes open) - 1(Present in one limb) 8. Sensory Loss (pinprick arms/legs/face) - 1(Mild to moderate loss) 9. Best Language: Aphasia (description/naming/reading) - 1(Mild to moderate aphasia) Initials: amauri NIH Stroke Scale - NIH Stroke Score Date: 04/12/2024 Time: 15:25 Total Score = 2 10. Dysarthria (speech clarity - read or repeat words) - 0(Normal) 11. Extinction and Inattention (visual/tactile/auditory/spatial/personal) - 0(No abnormality) 1a. Level of Consciousness (LOC) - 0(Alert) 1b. Level of Consciousness (LOC) (Month \T\ Age) - 0(Both) 1c. LOC Commands (Open \T\ Closes Eyes/Manager Star) - 0(Both) 2. Best Gaze (Lateral Gaze Paresis) - 0(Normal) 3. Visual Field Loss - 0(No visual loss) 4. Facial Palsy - 0(Normal) 5a. Left Arm: Motor (10-second hold) - 0(No drift) 5b. Right Arm: Motor (10-second hold) - 0(No drift) 6a. Left Leg: Motor (5-second hold - always test supine) - 0(No drift) 6b. Right Leg: Motor (5-second hold - always test supine) - 0(No drift) 7. Limb Ataxia (finger/nose \T\ heel/pruitt - test with eyes open) - 1(Present in one limb) 8. Sensory Loss (pinprick arms/legs/face) - 0(Normal) 9. Best Language: Aphasia (description/naming/reading) - 1(Mild to moderate aphasia) Initials: tl4 Signatures: Dispatcher [employer] EDMS Fady Leigh MD MD cha Pinkerton, Shawna sp Baxter, Heather, RN Taiwo Vela RN RN ll1 Brian Ang RN RN tl4 Mary Villafana 4 Corrections: (The following items were deleted from the chart) 14:22 14:00 Chief complaint: Patient states: Having trouble getting her words out. ll1 EMS states: EMS was called for a patient that was disoriented. Found in vehicle at [facility] confused, aphasic, R sided weak. BP 198/87, blood sugar 161, other vitals WNL. ll1
[2024-04-12] MEDS ORDERED: FAMOTIDINE 20 MG/2 ML VIAL IV ONE (14:21)
--- NOTE | 2024-04-12 14:21 | EDPHYS ---
Physician Documentation [facility] Name: Christine Parson Age: 78 yrs Sex: Female : 1945 Arrival Date: 04/12/2024 Time: 13:32 Bed 18 Private MD: ED Physician Fady Leigh HPI: 04/12 14:11 This 78 yrs old Female presents to ER via EMS with complaints of right side amauri weakness, aphasia. 14:11 The patient's problem is reported as weakness, in the right upper extremity, in the amauri right lower extremity. Onset: The symptoms/episode began/occurred at 11:45. Duration: The episode is continuous. Context: symptoms became apparent at 11:45. The symptoms are alleviated by nothing. The symptoms are aggravated by nothing. The patient presents with dysphasia, trouble concentrating. Possible causes: CVA or TIA, drug use, alcohol, head injury, low blood sugar, seizure, sepsis. Associated signs and symptoms: Pertinent positives: dizziness, lightheadedness. 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 - Infectious Disease History:: Denies. - Social history:: Smoking status: Patient denies any tobacco usage or history of. - Family history:: not pertinent. ROS: 14:11 Constitutional: Negative for fever, chills, and weight loss, Eyes: Negative for injury, amauri pain, redness, and discharge, ENT: Negative for injury, pain, and discharge, Neck: Negative for injury, pain, and swelling, Cardiovascular: Negative for chest pain, palpitations, and edema, Respiratory: Negative for shortness of breath, cough, wheezing, and pleuritic chest pain, Abdomen/GI: Negative for abdominal pain, nausea, vomiting, diarrhea, and constipation, Back: Negative for injury and pain, : Negative for injury, bleeding, discharge, and swelling, Skin: Negative for injury, rash, and discoloration, Psych: Negative for depression, anxiety, suicide ideation, homicidal ideation, and hallucinations, Allergy/Immunology: Negative for hives, rash, and allergies, Endocrine: Negative for neck swelling, polydipsia, polyuria, polyphagia, and marked weight changes, Hematologic/Lymphatic: Negative for swollen nodes, abnormal bleeding, and unusual bruising, 14:11 MS/extremity: Positive for paresthesias, of the right arm and right leg, 14:11 Neuro: Positive for dizziness, speech changes, weakness, Exam: 14:11 Radiologist reports: neg amauri 14:11 Constitutional: This is a well developed, well nourished patient who is awake, alert, and in no acute distress. Head/Face: Normocephalic, atraumatic. Eyes: Pupils equal round and reactive to light, extra-ocular motions intact. Lids and lashes normal. Conjunctiva and sclera are non-icteric and not injected. Cornea within normal limits. Periorbital areas with no swelling, redness, or edema. ENT: Nares patent. No nasal discharge, no septal abnormalities noted. Tympanic membranes are normal and external auditory canals are clear. Oropharynx with no redness, swelling, or masses, exudates, or evidence of obstruction, uvula midline. Mucous membranes moist. Neck: Trachea midline, no thyromegaly or masses palpated, and no cervical lymphadenopathy. Supple, full range of motion without nuchal rigidity, or vertebral point tenderness. No Meningismus. Chest/axilla: Normal chest wall appearance and motion. Nontender with no deformity. No lesions are appreciated. Cardiovascular: Regular rate and rhythm with a normal S1 and S2. No gallops, murmurs, or rubs. Normal PMI, no JVD. No pulse deficits. Respiratory: Lungs have equal breath sounds bilaterally, clear to auscultation and percussion. No rales, rhonchi or wheezes noted. No increased work of breathing, no retractions or nasal flaring. Abdomen/GI: Soft, non-tender, with normal bowel sounds. No distension or tympany. No guarding or rebound. No evidence of tenderness throughout. Back: No spinal tenderness. No costovertebral tenderness. Full range of motion. Female : Normal external genitalia. Skin: Warm, dry with normal turgor. Normal color with no rashes, no lesions, and no evidence of cellulitis. MS/ Extremity: Pulses equal, no cyanosis. Neurovascular intact. Full, normal range of motion. Psych: Awake, alert, with orientation to person, place and time. Behavior, mood, and affect are within normal limits. 14:11 Neuro: Orientation: to person, place, time, situation, Mentation: confused, Memory: immediate memory is impaired, remote memory is impaired, recent memory is impaired, cant express since 1145 effectively, 15:10 ECG was reviewed by the Attending Physician. [facility] Vital Signs: 14:10 BP 190 / 109; Pulse 76; Resp 17; ll1 14:15 BP 182 / 86; Pulse 71; Resp 19; Pulse Ox 99% ; Weight 97.07 kg; tl4 14:30 BP 190 / 84; Pulse 70; Resp 19; Pulse Ox 98% on R/A; tl4 14:45 BP 176 / 80; Pulse 70; Resp 19; Pulse Ox 100% on R/A; tl4 15:00 BP 175 / 91; Pulse 71; Resp 12; Pulse Ox 100% on R/A; tl4 15:15 BP 182 / 90; Pulse 82; Resp 22; Pulse Ox 97% on R/A; tl4 15:25 BP 174 / 80; Pulse 74; Resp 16; Temp 97.9(O); Pulse Ox 99% on R/A; Pain 0/10; tl4 15:25 Pain Scale: Adult tl4 NIH Stroke Scale Scores: 14:10 NIHSS Score: 3 tl4 14:17 NIHSS Score: 3 amauri 15:25 NIHSS Score: 2 tl4 MDM: 13:41 Patient medically screened. amauri 14:21 Differential diagnosis: CVA, TIA, Dementia, paralysis, metabolic disorder, drug amauri effects. Differential Diagnosis: CVA, electrolyte abnormality, hypoglycemia, intracranial bleed, meningitis, pneumonia, sepsis, TIA, UTI, volume depletion. Data reviewed: vital signs, nurses notes, EMS record, lab test result(s), EKG, radiologic studies, CT scan, plain films. Consideration of Admission/Observation Escalation of care including admission/observation considered. I considered the following discharge prescriptions or medication management in the emergency department Medications were administered in the Emergency Department. See MAR. Independent interpretation of the following test(s) in the Emergency Department EKG: See my EKG interpretation above. Test considered but Not performed: MRI: no mri brain. 04/12 13:43 Order name: Basic Metabolic Panel; Complete Time: 14:52 [facility] 04/12 13:43 Order name: CBC with Diff; Complete Time: 14:18 [facility] 04/12 13:43 Order name: LFT's; Complete Time: 14:52 amauri 04/12 13:43 Order name: Magnesium; Complete Time: 14:52 amauri 04/12 13:43 Order name: NT PRO-BNP; Complete Time: 14:52 amauri 04/12 13:43 Order name: PT-INR; Complete Time: 14:18 amauri 04/12 13:43 Order name: Troponin HS; Complete Time: 14:52 amauri 04/12 13:43 Order name: CRP; Complete Time: 14:52 [facility] 04/12 14:14 Order name: CREATININE WHOLE BLOOD; Complete Time: 14:18 EDMS 04/12 13:43 Order name: XRAY Chest (1 view); Complete Time: 14:52 amauri 04/12 13:43 Order name: CT Stroke Brain w/o Contrast; Complete Time: 14:18 [facility] 04/12 13:43 Order name: CT Neck Angio; Complete Time: 14:18 amauri 04/12 13:43 Order name: CT Head Angio; Complete Time: 14:18 [facility] 04/12 13:43 Order name: EKG; Complete Time: 13:43 amauri 04/12 13:43 Order name: Cardiac monitoring; Complete Time: 14:18 04/12 13:43 Order name: EKG - Nurse/Tech; Complete Time: 15:06 [facility] 04/12 13:43 Order name: IV Saline Lock; Complete Time: 15:06 [facility] 04/12 13:43 Order name: Labs collected and sent; Complete Time: 15:06 [facility] 04/12 13:43 Order name: O2 Per Protocol; Complete Time: 14:17 [facility] 04/12 13:43 Order name: O2 Sat Monitoring; Complete Time: 14:17 [facility] EC:10 Rate is 71 beats/min. Rhythm is regular. QRS [place] is Normal. ME interval is prolonged amauri at 220 msec. QRS interval is normal. QT interval is normal. No Q waves. T waves are Normal. No ST changes noted. Clinical impression: NSR w/ Non-specific ST/T Changes and No evidence of ischemia. Interpreted by me. Reviewed by me. Administered Medications: 14:45 Drug: Famotidine IVP 20 mg IVP once; dilute with 10 mL 0.9% NaCl; give over 2 minutes tl4 Route: IVP; Infused Over: 2 mins; Site: left antecubital; 15:14 Follow up: Response: No adverse reaction tl4 14:50 Drug: TNK FOR STROKE - Tenecteplase IV 0.25 mg/kg IV at per protocol once; MAX tl4 DOSE 25 mg, IVP over 5 seconds {Co-Signature: cp4 (Mary Villafana).} Route: IV; Rate: per protocol; Site: left antecubital; 14:57 Follow up: Response: No adverse reaction; IV Status: Completed infusion tl4 14:53 Drug: foLIC Acid IVPB 1 mg IVPB once Route: IVPB; Infused Over: 5 mins; Site: left tl4 antecubital; 15:14 Follow up: Response: No adverse reaction; IV Status: Completed infusion tl4 15:14 Drug: NS 0.9% IV 1000 ml IV at 1 bolus Per protocol; 1000 mL bolus Route: IV; Rate: 1 tl4 bolus; Site: left antecubital; 15:26 Follow up: Response: No adverse reaction; IV Status: Infusion continued; IV Intake: tl4 250ml 15:14 Drug: Labetalol IV 10 mg IV at per protocol once Route: IV; Rate: per protocol; Site: tl4 left antecubital; 15:26 Follow up: Response: No adverse reaction; IV Status: Completed infusion tl4 Disposition Summary: 04/12/24 14:20 Transfer Ordered Notes: Transfer Location: [facility] amauri Reason: Higher level of care amauri Condition: Fair amauri Problem: an ongoing problem amauri Symptoms: are unchanged amauri Accepting Physician: to [facility](04/12/24 15:44) tl4 Diagnosis - Cerebral infarction, unspecified - acute amauri - Essential (primary) hypertension amauri Forms: - Medication Reconciliation Form amauri - SBAR form amauri NIH Stroke Scale - NIH Stroke Score Date: 04/12/2024 Time: 14:10 Total Score = 3 10. Dysarthria (speech clarity - read or repeat words) - 0(Normal) 11. Extinction and Inattention (visual/tactile/auditory/spatial/personal) - 0(No abnormality) 1a. Level of Consciousness (LOC) - 0(Alert) 1b. Level of Consciousness (LOC) (Month \T\ Age) - 0(Both) 1c. LOC Commands (Open \T\ Closes Eyes/Industrial Methods Consultant) - 0(Both) 2. Best Gaze (Lateral Gaze Paresis) - 0(Normal) 3. Visual Field Loss - 0(No visual loss) 4. Facial Palsy - 0(Normal) 5a. Left Arm: Motor (10-second hold) - 0(No drift) 5b. Right Arm: Motor (10-second hold) - 0(No drift) 6a. Left Leg: Motor (5-second hold - always test supine) - 0(No drift) 6b. Right Leg: Motor (5-second hold - always test supine) - 0(No drift) 7. Limb Ataxia (finger/nose \T\ heel/pruitt - test with eyes open) - 1(Present in one limb) 8. Sensory Loss (pinprick arms/legs/face) - 1(Mild to moderate loss) 9. Best Language: Aphasia (description/naming/reading) - 1(Mild to moderate aphasia) Initials: tl4 NIH Stroke Scale - NIH Stroke Score Date: 04/12/2024 Time: 14:17 Total Score = 3 10. Dysarthria (speech clarity - read or repeat words) - 0(Normal) 11. Extinction and Inattention (visual/tactile/auditory/spatial/personal) - 0(No abnormality) 1a. Level of Consciousness (LOC) - 0(Alert) 1b. Level of Consciousness (LOC) (Month \T\ Age) - 0(Both) 1c. LOC Commands (Open \T\ Closes Eyes/Industrial Methods Consultant) - 0(Both) 2. Best Gaze (Lateral Gaze Paresis) - 0(Normal) 3. Visual Field Loss - 0(No visual loss) 4. Facial Palsy - 0(Normal) 5a. Left Arm: Motor (10-second hold) - 0(No drift) 5b. Right Arm: Motor (10-second hold) - 0(No drift) 6a. Left Leg: Motor (5-second hold - always test supine) - 0(No drift) 6b. Right Leg: Motor (5-second hold - always test supine) - 0(No drift) 7. Limb Ataxia (finger/nose \T\ heel/pruitt - test with eyes open) - 1(Present in one limb) 8. Sensory Loss (pinprick arms/legs/face) - 1(Mild to moderate loss) 9. Best Language: Aphasia (description/naming/reading) - 1(Mild to moderate aphasia) Initials: amauri NIH Stroke Scale - NIH Stroke Score Date: 04/12/2024 Time: 15:25 Total Score = 2 10. Dysarthria (speech clarity - read or repeat words) - 0(Normal) 11. Extinction and Inattention (visual/tactile/auditory/spatial/personal) - 0(No abnormality) 1a. Level of Consciousness (LOC) - 0(Alert) 1b. Level of Consciousness (LOC) (Month \T\ Age) - 0(Both) 1c. LOC Commands (Open \T\ Closes Eyes/Industrial Methods Consultant) - 0(Both) 2. Best Gaze (Lateral Gaze Paresis) - 0(Normal) 3. Visual Field Loss - 0(No visual loss) 4. Facial Palsy - 0(Normal) 5a. Left Arm: Motor (10-second hold) - 0(No drift) 5b. Right Arm: Motor (10-second hold) - 0(No drift) 6a. Left Leg: Motor (5-second hold - always test supine) - 0(No drift) 6b. Right Leg: Motor (5-second hold - always test supine) - 0(No drift) 7. Limb Ataxia (finger/nose \T\ heel/pruitt - test with eyes open) - 1(Present in one limb) 8. Sensory Loss (pinprick arms/legs/face) - 0(Normal) 9. Best Language: Aphasia (description/naming/reading) - 1(Mild to moderate aphasia) Initials: tl4 Signatures: Dispatcher [employer] EDFady Rutherford MD MD cha Lewis, Lynsay RN RN ll1 Brian Ang RN RN tl4 Mary Villafana cp4 Corrections: (The following items were deleted from the chart) 13:44 13:43 BASIC METABOLIC PANEL+C.LAB.BRZ ordered. EDMS EDMS 13:44 13:43 CBC+H.LAB.BRZ ordered. EDMS EDMS 13:44 13:43 HEPATIC FUNCTION+C.LAB.BRZ ordered. EDMS EDMS 13:44 13:43 MAGNESIUM+C.LAB.BRZ ordered. EDMS EDMS 13:44 13:43 PROBNP+C.LAB.BRZ ordered. EDMS EDMS 13:44 13:43 PROTIME (+INR)+COAG.LAB.BRZ ordered. EDMS EDMS 13:44 13:43 Troponin High Sensitivity+C.LAB.BRZ ordered. EDMS EDMS :44 13:43 C-REACTIVE PROTEIN+C.LAB.BRZ ordered. EDMS EDMS :44 13:43 Urinalysis+U.LAB.BRZ ordered. EDMS EDMS : 13:44 Neck Angio+CT.RAD.BRZ ordered. EDMS EDMS : 13:44 Head Angio+CT.RAD.BRZ ordered. EDMS EDMS 14:23 14:20 to [facility] amauri 15:44 14:23 to [facility] tl4
[2024-04-12 14:22] LABS: ALT/SGPT 21 U/L (13-56); AST/SGOT 15 U/L (15-37); Albumin 3.5 g/dL (3.4-5.0); Alkaline Phosphatase 68 U/L (45-117); Anion Gap 10.8 mEq/L (5.0-15.0); BUN Blood Urea Nitrogen 23 mg/dL (7-18); Bicarbonate 25 mEq/L (21-32); Bilirubin Total 0.6 mg/dL (0.2-1.0); Globulin 3.4 g/dL (2.3-3.5); Glomerular Filtration Rate 60 ml/min (=/>90); Glucose Level 128 mg/dL (74-106); NT PRO-BNP 645 pg/mL (<450); Potassium 3.8 mEq/L (3.5-5.1); Protein, Total 6.9 g/dL (6.4-8.2); Sodium Level 139 mEq/L (136-145); Troponin High Sensitivity 9.2 pg/mL (<58.9)
[2024-04-12] MEDS ORDERED: TENECTEPLASE 50 MG/10 ML VIAL IV ONE (14:22)
[2024-04-12] MEDS ORDERED: FOLIC ACID 5 MG/ML VIAL ONE (14:22)
[2024-04-12 14:25] LABS: Bilirubin Direct < 0.2 mg/dL (0-0.2); Bilirubin Indirect, Calculated 0.4 mg/dL (0.2-0.8); C-Reactive Protein < 2.90 mg/L (<3.00)
--- NOTE | 2024-04-12 14:33 | RAD REPORT ---
EXAM DESCRIPTION: RAD - Chest Single View - 04/12/2024 2:10 pm CLINICAL HISTORY: COUGH COMPARISON: Chest Single View dated 07/04/2021; Chest For Pe Angio dated 07/04/2021 FINDINGS: Lines: None. Lungs: Diffuse prominence of the pulmonary interstitium. Peripheral opacities noted which are likely chronic. Opacities overlying the lower lungs could reflect the patient's breast prostheses. Pleural: No significant pleural effusions or pneumothorax. Cardiac: Cardiomegaly. Mediastinum: Within normal limits. Bones: No acute fractures. Other: None IMPRESSION: Partially limited due to relative opacification of the lungs due to the patient's overly ing breast tissue/prostheses. Suspect chronic changes primarily but the lung bases are not well asses sed and an acute airspace process is difficult to exclude.
[2024-04-12] MEDS ORDERED: LABETALOL 20 MG/4ML SYRINGE IV ONE (15:13)
[2024-04-12] MEDS ORDERED: NA CHLORIDE 0.9% 1,000 ML ONE (15:13)
[2024-04-12 16:07] VITALS: BP 182/86; O2SAT 99
--- NOTE | 2024-04-13 14:13 | EKG ---
Test Date: 2024-04-12 Test Time: 15:03:36 [employer] Director: TL MEASUREMENT RESULTS: Intervals: Rate: 71 NC: 220 QRSD: 140 QT: 430 QTc: 467 [place]: P: 70 NC: 220 QRS: 1 T: 121 INTERPRETIVE STATEMENTS: Sinus rhythm with 1st degree AV block Left bundle branch block Abnormal ECG Compared to ECG 07/04/2021 04:33:42 First degree AV block now present Left bundle-branch block now present Sinus tachycardia no longer present Fusion complex(es) no longer present Ventricular premature complex(es) no longer present Left ventricular hypertrophy no longer present ST (T wave) deviation no longer present Possible ischemia no longer present Electronically Signed On 04-13-24 14:11:27 CDT by Jin Yarbrough
== END 2024-04-12 15:44 | disposition short-term general hospital (02) ==
LOC: ER 13:32
DX: I63.9 Cerebral infarction, unspecified (principal); R47.01 Aphasia; I10 Essential (primary) hypertension; R29.703 NIHSS score 3; I48.92 Unspecified atrial flutter
CPT/HCPCS: 96365; 92977; 93005; 85025; 80048; 36415; 83735; 85610; 82565; 80076; 84484; 83880; 86140; 70496; 70498; 70450; 71045; 96375; 99285; Q9967; J3101; J7030